=== PATIENT | female | born 1930 | race African-American/Black ===

== ENCOUNTER 2017-04-23 11:48 | Emergency (ER) | payer MEDICARE, BC ==
[~2017-04-23] VITALS: Ht 162.6 cm; Wt 103.0 kg
[~2017-04-23 11:48] MED LIST: ACET-2708 PO; AMLO5TAB4 PO; ATOR20TA PO; Atenolol PO; CHOL500010 PO; CLOP75TA15 PO; Docusate Sodium PO; FERR325T23 PO; Fluticasone Propionate BOTHNSTRLS; HYDR200T35 PO; LOSA100T3 PO; Levothyroxine Sodium PO; MY50 PO; OLAN10TA3 PO; PRIM50TA31 PO; TERA5CAP4 PO; VENL75CA55 PO
[2017-04-23] MEDS ORDERED: CLONIDINE 0.1MG TABLET PO ONE (12:15)
[2017-04-23 12:29] LABS: BASOPHILS % 0.5 % (0.0-2.0); EOSINOPHILS % 0.1 % (0.0-5.0); HEMATOCRIT. 28.3 % (36.0-48.0); HEMOGLOBIN. 9.5 g/dL (12.0-16.0); LYMPHOCYTES % 16.7 % (20.0-50.0); MEAN CORPUSCULAR HEMOGLOBIN 26.4 pg (28.0-32.0); MEAN CORPUSCULAR VOLUME 78.9 fL (81.0-99.0); MEAN PLATELET VOLUME 6.8 fl (7.4-10.4); MONOCYTES % 4.5 % (2.0-8.0); NEUTROPHILS % 78.2 % (40.0-76.0); PLATELET 225 x1000/uL (130-400); RED BLOOD CELL COUNT 3.59 mill/uL (4.2-5.4); RED CELL DISTRIBUTION WIDTH 15.3 % (11.6-14.6)
[2017-04-23 12:37] LABS: PROTHROMBIN TIME 10.7 sec (9.4-11.6)
[2017-04-23 12:47] LABS: CARBON DIOXIDE 29 mEq/L (21-32); CHLORIDE 99 mEq/L (98-107); CREATINE KINASE 89 IU/L (26-192); TROPONIN I < 0.02 ng/mL (0.00-0.04)
[2017-04-23 13:47] LABS: CLARITY URINE CLEAR (CLEAR); COLOR URINE YELLOW (YELLOW); GLUCOSE URINE TRACE (NEGATIVE); KETONES URINE NEGATIVE (NEGATIVE); LEUKOCYTE ESTERASE URINE NEGATIVE (NEGATIVE); NITRITE URINE NEGATIVE (NEGATIVE); OCCULT BLOOD URINE NEGATIVE (NEGATIVE); PH URINE 6.5 (4.5-8.0); PROTEIN URINE 2+ (NEGATIVE); SPECIFIC GRAVITY URINE 1.014 (1.005-1.030); UROBILINOGEN URINE 0.2 E.U./dL (0.2-1.0)
[2017-04-23 16:20] VITALS: BP 161/85
== END 2017-04-23 16:57 | disposition home or self-care (01) ==
LOC: EDBEDREQ 12:09 → ER 12:21 → CANBEDREQ 04-24 01:39
DX: I10 Essential (primary) hypertension (principal); E78.00 Pure hypercholesterolemia, unspecified; Z88.2 Allergy status to sulfonamides; Z88.5 Allergy status to narcotic agent; Z88.8 Allergy status to other drugs, medicaments and biological substances
CPT/HCPCS: 36415; 70450; 71010; 80053; 81001; 82550; 84443; 84484; 85025; 85610; 93005; 99285

== ENCOUNTER 2019-06-27 13:45 | Inpatient (IN) | payer MEDICARE, BC ==
[~2019-06-27] VITALS: Ht 157.5 cm; Wt 76.2 kg
[2019-06-27] MEDS ORDERED: ONDANSETRON HCL 4MG/2ML INJ IV STA (15:18)
[2019-06-27] MEDS ORDERED: SODIUM CHLORIDE 0.9% 1,000 ML IV ONE (15:18)
[2019-06-27 16:48] LABS: CHLORIDE 102 mEq/L (98-107); PROTHROMBIN TIME 10.5 sec (9.6-11.0)
[2019-06-27 16:49] LABS: BASOPHILS % 0.4 % (0.0-2.0); EOSINOPHILS % 0.2 % (0.0-5.0); LYMPHOCYTES % 20.7 % (20.0-50.0); MEAN CORPUSCULAR HEMOGLOBIN 21.2 pg (28.0-32.0); MEAN CORPUSCULAR VOLUME 65.8 fL (81.0-99.0); MONOCYTES % 7.1 % (2.0-8.0); NEUTROPHILS % 71.6 % (40.0-76.0); PLATELET 224 x1000/uL (130-400); RED BLOOD CELL COUNT 3.13 mill/uL (4.2-5.4); RED CELL DISTRIBUTION WIDTH 18.3 % (11.6-14.6)
[2019-06-27 16:55] LABS: HEMATOCRIT. 20.6 % (36.0-48.0); HEMOGLOBIN. 6.6 g/dL (12.0-16.0)
[2019-06-27 17:10] LABS: PLATELET ESTIMATE NORMAL
[2019-06-27 17:21] LABS: CLARITY URINE CLEAR (CLEAR); COLOR URINE YELLOW (YELLOW); KETONES URINE NEGATIVE (NEGATIVE); LEUKOCYTE ESTERASE URINE TRACE (NEGATIVE); NITRITE URINE NEGATIVE (NEGATIVE); OCCULT BLOOD URINE NEGATIVE (NEGATIVE); PH URINE 5.5 (4.5-8.0); PROTEIN URINE 1+ (NEGATIVE); SPECIFIC GRAVITY URINE 1.008 (1.005-1.030); UROBILINOGEN URINE 0.2 E.U./dL (0.2-1.0)
[2019-06-28 10:00] VITALS: BP 168/87
[2019-06-28 10:30] VITALS: BP 168/87
[2019-06-28] MEDS ORDERED: NON FORMULARY PATIENT HOME MED PO SCH ×2 (10:30→11:00)
[2019-06-28 12:00] VITALS: BP_SYST 165; BP_DIAS 76; BP_DIAS 78
[2019-06-28] MEDS: PANTOPRAZOLE 40MG DR TABLET PO SCH (12:08)
[2019-06-28] MEDS: HYDROXYCHLOROQUINE SULFATE 200MG TABLET PO SCH (12:09)
[2019-06-28] MEDS: ATENOLOL 25MG TABLET PO SCH ×2 (12:09→21:16)
[2019-06-28] MEDS: AMLODIPINE 5MG TABLET PO SCH ×2 (12:09→21:16)
[2019-06-28] MEDS ORDERED: VENLAFAXINE HCL 50MG TABLET PO SCH (13:00)
[2019-06-28] MEDS: FUROSEMIDE 20MG TABLET PO SCH ×2 (13:30→21:15)
[2019-06-28] MEDS: LINAGLIPTIN 5MG TABLET PO SCH (13:30)
[2019-06-28] MEDS: OLANZAPINE 10MG TABLET PO SCH (13:30)
[2019-06-28 13:39] LABS: BASOPHILS % 0.8 % (0.0-2.0); EOSINOPHILS % 0.1 % (0.0-5.0); HEMATOCRIT. 25.6 % (36.0-48.0); HEMOGLOBIN. 8.2 g/dL (12.0-16.0); LYMPHOCYTES % 20.4 % (20.0-50.0); MEAN CORPUSCULAR HEMOGLOBIN 22.8 pg (28.0-32.0); MEAN CORPUSCULAR VOLUME 70.9 fL (81.0-99.0); MEAN PLATELET VOLUME 7.3 fl (7.4-10.4); MONOCYTES % 8.2 % (2.0-8.0); NEUTROPHILS % 70.5 % (40.0-76.0); PLATELET 220 x1000/uL (130-400); RED BLOOD CELL COUNT 3.61 mill/uL (4.2-5.4); RED CELL DISTRIBUTION WIDTH 20.8 % (11.6-14.6)
[2019-06-28] MEDS: VENLAFAXINE HCL 37.5MG SR CAPSULE 24HR PO SCH (15:45)
[2019-06-28] MEDS: PRIMIDONE 50MG TABLET PO SCH ×2 (15:45→21:17)
[2019-06-28 16:00] VITALS: BP 161/68
[2019-06-28] MEDS ORDERED: ATEN-42 PO (17:32)
[2019-06-28] MEDS ORDERED: LEVO25TA7 PO (17:32)
[2019-06-28] MEDS ORDERED: DOCU-138 PO (17:32)
[2019-06-28 20:00] VITALS: BP 134/77
[2019-06-28] MEDS: ATORVASTATIN CALCIUM 20MG TABLET PO SCH (21:15)
[2019-06-29] VITALS: BP 138/69
[2019-06-29 04:00] VITALS: BP 178/82
[2019-06-29] MEDS: PANTOPRAZOLE 40MG DR TABLET PO SCH (06:13)
[2019-06-29] MEDS: AMLODIPINE 5MG TABLET PO SCH ×2 (06:42→21:11)
[2019-06-29 08:00] VITALS: BP 172/74
[2019-06-29] MEDS: FUROSEMIDE 20MG TABLET PO SCH ×2 (09:07→21:10)
[2019-06-29] MEDS: PRIMIDONE 50MG TABLET PO SCH ×2 (09:07→21:10)
[2019-06-29] MEDS: LINAGLIPTIN 5MG TABLET PO SCH (09:07)
[2019-06-29] MEDS: VENLAFAXINE HCL 37.5MG SR CAPSULE 24HR PO SCH (09:08)
[2019-06-29] MEDS: ATENOLOL 25MG TABLET PO SCH ×2 (09:08→21:13)
[2019-06-29] MEDS: OLANZAPINE 10MG TABLET PO SCH (09:08)
[2019-06-29] MEDS: HYDROXYCHLOROQUINE SULFATE 200MG TABLET PO SCH (09:08)
[2019-06-29 11:08] LABS: CHLORIDE 103 mEq/L (98-107)
[2019-06-29 12:00] VITALS: BP 155/66
[2019-06-29 12:52] LABS: TOTAL IRON BINDING CAPACITY 314 ug/dL (250-450)
[2019-06-29 14:23] LABS: BASOPHILS % 0.5 % (0.0-2.0); EOSINOPHILS % 0.1 % (0.0-5.0); HEMOGLOBIN. 8.6 g/dL (12.0-16.0); MEAN CORPUSCULAR HEMOGLOBIN 22.7 pg (28.0-32.0); MEAN CORPUSCULAR VOLUME 71.5 fL (81.0-99.0); MEAN PLATELET VOLUME 7.8 fl (7.4-10.4); MONOCYTES % 7.3 % (2.0-8.0); NEUTROPHILS % 75.1 % (40.0-76.0); PLATELET 223 x1000/uL (130-400); RED BLOOD CELL COUNT 3.78 mill/uL (4.2-5.4); RED CELL DISTRIBUTION WIDTH 20.8 % (11.6-14.6)
[2019-06-29 16:00] VITALS: BP 151/67
[2019-06-29] MEDS ORDERED: FAMO40TA7 MT (16:08)
[2019-06-29] MEDS ORDERED: POTASSIUM CHLORIDE 20MEQ TABLET SR PO SCH (17:00)
[2019-06-29 20:00] VITALS: BP 177/71
[2019-06-29] MEDS: ATORVASTATIN CALCIUM 20MG TABLET PO SCH (21:10)
[2019-06-29] MEDS: POTASSIUM CHLORIDE 20MEQ TABLET SR PO SCH (23:15)
[2019-06-30] VITALS: BP_SYST 164; BP_SYST 179; BP_SYST 188; BP_DIAS 77; BP_DIAS 80; BP_DIAS 87
[2019-06-30] MEDS ORDERED: AMLODIPINE 5MG TABLET PO PRN (00:45)
[2019-06-30 04:00] VITALS: BP 167/71
[2019-06-30 06:58] LABS: BASOPHILS % 0.7 % (0.0-2.0); EOSINOPHILS % 0.1 % (0.0-5.0); HEMATOCRIT. 26.3 % (36.0-48.0); HEMOGLOBIN. 8.3 g/dL (12.0-16.0); LYMPHOCYTES % 24.4 % (20.0-50.0); MEAN CORPUSCULAR HEMOGLOBIN 22.3 pg (28.0-32.0); MEAN CORPUSCULAR VOLUME 70.7 fL (81.0-99.0); MONOCYTES % 6.7 % (2.0-8.0); NEUTROPHILS % 68.1 % (40.0-76.0); PLATELET 225 x1000/uL (130-400); RED BLOOD CELL COUNT 3.72 mill/uL (4.2-5.4); RED CELL DISTRIBUTION WIDTH 20.9 % (11.6-14.6)
[2019-06-30 08:00] VITALS: BP 179/78
[2019-06-30] MEDS: OLANZAPINE 10MG TABLET PO SCH (09:00)
[2019-06-30] MEDS: HYDROXYCHLOROQUINE SULFATE 200MG TABLET PO SCH (09:00)
[2019-06-30] MEDS: VENLAFAXINE HCL 37.5MG SR CAPSULE 24HR PO SCH (09:00)
[2019-06-30] MEDS: PRIMIDONE 50MG TABLET PO SCH ×2 (09:00→21:33)
[2019-06-30] MEDS: FUROSEMIDE 20MG TABLET PO SCH ×2 (09:23→21:33)
[2019-06-30] MEDS: ATENOLOL 25MG TABLET PO SCH (09:23)
[2019-06-30] MEDS: LINAGLIPTIN 5MG TABLET PO SCH (09:23)
[2019-06-30] MEDS: PANTOPRAZOLE SODIUM 40 MG/VIAL IV SCH (09:23)
[2019-06-30] MEDS: AMLODIPINE 5MG TABLET PO SCH ×2 (09:23→21:33)
[2019-06-30] MEDS: POTASSIUM CHLORIDE 20MEQ TABLET SR PO SCH ×2 (11:00→23:24)
[2019-06-30] MEDS ORDERED: FENTANYL CITRATE/PF 50MCG/ML 2ML VIAL ONE (12:41)
[2019-06-30] MEDS ORDERED: SIMETHICONE 40 MG/0.6 ML 30ML ONE (12:41)
[2019-06-30] MEDS ORDERED: MIDAZOLAM HCL 5 MG/5 ML VIAL ONE (12:41)
[2019-06-30] MEDS ORDERED: FENTANYL CITRATE/PF 50MCG/ML 2ML VIAL IV PRN (12:50)
[2019-06-30] MEDS ORDERED: MIDAZOLAM HCL 5 MG/5 ML VIAL IV PRN (12:51)
[2019-06-30 14:30] VITALS: BP 160/75
[2019-06-30 16:00] VITALS: BP 178/75
[2019-06-30] MEDS: FERROUS SULFATE 325MG TABLET PO SCH (16:42)
[2019-06-30] MEDS ORDERED: ACETAMINOPHEN 325MG TABLET PO PRN (17:15)
[2019-06-30] MEDS ORDERED: ACETAMINOPHEN 650MG/20.3ML UDC PO PRN (17:15)
[2019-06-30 20:00] VITALS: BP 167/79
[2019-06-30] MEDS: ATORVASTATIN CALCIUM 20MG TABLET PO SCH (21:33)
[2019-06-30] MEDS: ATENOLOL 50 MG TABLET PO SCH (21:33)
[2019-07-01] VITALS: BP_SYST 160; BP_SYST 161; BP_SYST 187; BP_DIAS 72; BP_DIAS 80; BP_DIAS 82
[2019-07-01 04:00] VITALS: BP 168/80
[2019-07-01] MEDS: FUROSEMIDE 20MG TABLET PO SCH ×2 (09:13→20:59)
[2019-07-01] MEDS: METFORMIN HCL 500MG TABLET PO SCH ×2 (09:13→17:16)
[2019-07-01] MEDS: PANTOPRAZOLE SODIUM 40 MG/VIAL IV SCH (09:13)
[2019-07-01] MEDS: HYDROXYCHLOROQUINE SULFATE 200MG TABLET PO SCH (09:14)
[2019-07-01] MEDS: LINAGLIPTIN 5MG TABLET PO SCH (09:14)
[2019-07-01] MEDS: OLANZAPINE 10MG TABLET PO SCH (09:14)
[2019-07-01] MEDS: FERROUS SULFATE 325MG TABLET PO SCH ×2 (09:15→17:16)
[2019-07-01] MEDS: ATENOLOL 25MG TABLET PO SCH (09:15)
[2019-07-01] MEDS: AMLODIPINE 5MG TABLET PO SCH ×2 (09:15→20:59)
[2019-07-01] MEDS: PRIMIDONE 50MG TABLET PO SCH ×2 (09:15→20:59)
[2019-07-01] MEDS: VENLAFAXINE HCL 37.5MG SR CAPSULE 24HR PO SCH (09:20)
[2019-07-01 10:32] LABS: BASOPHILS % 0.8 % (0.0-2.0); EOSINOPHILS % 0.1 % (0.0-5.0); HEMATOCRIT. 29.4 % (36.0-48.0); HEMOGLOBIN. 9.2 g/dL (12.0-16.0); LYMPHOCYTES % 17.8 % (20.0-50.0); MEAN CORPUSCULAR HEMOGLOBIN 22.3 pg (28.0-32.0); MEAN CORPUSCULAR VOLUME 71.6 fL (81.0-99.0); MEAN PLATELET VOLUME 6.9 fl (7.4-10.4); MONOCYTES % 8.2 % (2.0-8.0); NEUTROPHILS % 73.1 % (40.0-76.0); PLATELET 242 x1000/uL (130-400); RED BLOOD CELL COUNT 4.11 mill/uL (4.2-5.4); RED CELL DISTRIBUTION WIDTH 22.2 % (11.6-14.6)
[2019-07-01] MEDS ORDERED: DEXTROSE 50% WATER 50ML SYRINGE IV PRN (11:45)
[2019-07-01] MEDS: POTASSIUM CHLORIDE 20MEQ TABLET SR PO SCH ×2 (12:00→23:44)
[2019-07-01] MEDS: BLOOD SUGAR DIAGNOSTIC STRIP TEST SCH ×3 (12:06→21:55)
[2019-07-01 16:32] LABS: PLATELET ESTIMATE NORMAL
[2019-07-01] MEDS: INSULIN LISPRO 100 UNITS/ML SUBCUT SCH ×2 (17:33→21:00)
[2019-07-01] MEDS: LOSARTAN POTASSIUM 100 MG TABLET PO SCH (18:58)
[2019-07-01 20:00] VITALS: BP_SYST 152; BP_SYST 165; BP_SYST 176; BP_DIAS 68; BP_DIAS 75; BP_DIAS 82
[2019-07-01] MEDS: ATENOLOL 50 MG TABLET PO SCH (20:59)
[2019-07-01] MEDS: ATORVASTATIN CALCIUM 20MG TABLET PO SCH (20:59)
[2019-07-02] VITALS: BP 187/81
[2019-07-02 01:16] VITALS: BP 155/66
[2019-07-02 04:00] VITALS: BP 186/88
[2019-07-02] MEDS: LOSARTAN POTASSIUM 100 MG TABLET PO SCH (06:20)
[2019-07-02] MEDS: FERROUS SULFATE 325MG TABLET PO SCH (06:20)
[2019-07-02] MEDS: AMLODIPINE 5MG TABLET PO SCH (06:21)
[2019-07-02] MEDS: METFORMIN HCL 500MG TABLET PO SCH (06:21)
[2019-07-02] MEDS: BLOOD SUGAR DIAGNOSTIC STRIP TEST SCH ×2 (07:13→11:44)
[2019-07-02] MEDS: INSULIN LISPRO 100 UNITS/ML SUBCUT SCH ×2 (07:14→11:53)
[2019-07-02 08:00] VITALS: BP 170/74
[2019-07-02] MEDS: ATENOLOL 25MG TABLET PO SCH (09:15)
[2019-07-02] MEDS: FUROSEMIDE 20MG TABLET PO SCH (09:15)
[2019-07-02] MEDS: PRIMIDONE 50MG TABLET PO SCH (09:15)
[2019-07-02] MEDS: OLANZAPINE 10MG TABLET PO SCH (09:15)
[2019-07-02] MEDS: VENLAFAXINE HCL 37.5MG SR CAPSULE 24HR PO SCH (09:15)
[2019-07-02] MEDS: PANTOPRAZOLE SODIUM 40 MG/VIAL IV SCH (09:17)
[2019-07-02] MEDS: HYDROXYCHLOROQUINE SULFATE 200MG TABLET PO SCH (09:18)
[2019-07-02] MEDS: LINAGLIPTIN 5MG TABLET PO SCH (09:43)
[2019-07-02] MEDS ORDERED: ATEN-42 PO (10:31)
[2019-07-02] MEDS ORDERED: ATEN50TA PO (10:31)
[2019-07-02] MEDS: POTASSIUM CHLORIDE 20MEQ TABLET SR PO SCH (11:39)
[2019-07-02 12:00] VITALS: BP 183/79
== END 2019-07-02 13:30 | disposition home or self-care (01) | DRG 280 ==
LOC: ER 13:45 → 5WST 17:59 → EDBEDREQ 18:10 → ENRESERV 06-28 08:04
PROVIDERS: ADMIT Specialist; ATTEND Specialist
PROC: 30233N1 Transfusion of Nonautologous Red Blood Cells into Peripheral Vein, Percutaneous Approach (ICD-10-PCS; principal; 2019-06-27)
PROC: 0DB48ZX Excision of Esophagogastric Junction, Via Natural or Artificial Opening Endoscopic, Diagnostic (ICD-10-PCS; 2019-06-30)
DX: I21.4 Non-ST elevation (NSTEMI) myocardial infarction (principal); E43 Unspecified severe protein-calorie malnutrition; N17.0 Acute kidney failure with tubular necrosis; E87.1 Hypo-osmolality and hyponatremia; D50.0 Iron deficiency anemia secondary to blood loss (chronic); E03.9 Hypothyroidism, unspecified; E87.6 Hypokalemia; I25.10 Atherosclerotic heart disease of native coronary artery without angina pectoris; K22.70 Barrett's esophagus without dysplasia; I11.9 Hypertensive heart disease without heart failure; F31.9 Bipolar disorder, unspecified; K21.9 Gastro-esophageal reflux disease without esophagitis; E78.00 Pure hypercholesterolemia, unspecified; K31.7 Polyp of stomach and duodenum; K44.9 Diaphragmatic hernia without obstruction or gangrene; E11.9 Type 2 diabetes mellitus without complications; Z96.641 Presence of right artificial hip joint; Z88.5 Allergy status to narcotic agent; Z88.6 Allergy status to analgesic agent; Z88.2 Allergy status to sulfonamides; Z90.49 Acquired absence of other specified parts of digestive tract; Z95.2 Presence of prosthetic heart valve; Z79.899 Other long term (current) drug therapy; Z68.30 Body mass index [BMI] 30.0-30.9, adult
CPT/HCPCS: 36415; 71045; 74176; 80048; 80053; 81003; 82270; 82728; 82962; 83540; 83550; 83605; 83880; 84484; 85025; 86850; 86900; 86920; 88305; 88312; 88313; 93005; 97162; 97535; 99291; C9113; J1815; J2250; J2405; J3010; J7030; P9016

== ENCOUNTER 2019-08-31 17:07 | Inpatient (IN) | payer MEDICARE, BC ==
[~2019-08-31] VITALS: Ht 158.8 cm; Wt 74.4 kg
[~2019-08-31 17:07] MED LIST changes: +ATEN-42 PO; +ATEN50TA PO; -Atenolol PO; +DOCU-138 PO; -Docusate Sodium PO; +FAMO40TA7 MT; -Fluticasone Propionate BOTHNSTRLS; +LEVO25TA7 PO; -LOSA100T3 PO; -Levothyroxine Sodium PO
[2019-08-31] MEDS ORDERED: SODIUM CHLORIDE 0.9% 1,000 ML IV ONE (17:39)
[2019-08-31 18:10] LABS: PROTHROMBIN TIME 10.4 sec (9.6-11.0)
[2019-08-31 18:11] LABS: BASOPHILS % 0.7 % (0.0-2.0); EOSINOPHILS % 0.2 % (0.0-5.0); HEMATOCRIT. 32.4 % (36.0-48.0); HEMOGLOBIN. 10.1 g/dL (12.0-16.0); LYMPHOCYTES % 25.7 % (20.0-50.0); MEAN CORPUSCULAR HEMOGLOBIN 23.3 pg (28.0-32.0); MEAN CORPUSCULAR VOLUME 74.2 fL (81.0-99.0); MEAN PLATELET VOLUME 8.3 fl (7.4-10.4); MONOCYTES % 6.9 % (2.0-8.0); NEUTROPHILS % 66.5 % (40.0-76.0); PLATELET 238 x1000/uL (130-400); RED BLOOD CELL COUNT 4.36 mill/uL (4.2-5.4); RED CELL DISTRIBUTION WIDTH 21.5 % (11.6-14.6)
[2019-08-31 18:12] LABS: CHLORIDE 95 mEq/L (98-107)
[2019-08-31 18:27] LABS: BETA HYDROXYBUTYRATE 0.1 mMol/L (0.0-0.3)
[2019-08-31] MEDS ORDERED: POTASSIUM CHLORIDE 20MEQ TABLET SR PO ONE (19:00)
[2019-08-31] MEDS ORDERED: INSULIN LISPRO 100 UNITS/ML SUBCUT ONE (19:00)
[2019-08-31] MEDS ORDERED: SODIUM CHLORIDE 0.9% 500 ML IV ONE (19:00)
[2019-08-31 19:11] LABS: CLARITY URINE CLEAR (CLEAR); COLOR URINE YELLOW (YELLOW); KETONES URINE NEGATIVE (NEGATIVE); LEUKOCYTE ESTERASE URINE NEGATIVE (NEGATIVE); NITRITE URINE NEGATIVE (NEGATIVE); OCCULT BLOOD URINE NEGATIVE (NEGATIVE); PROTEIN URINE 2+ (NEGATIVE); SPECIFIC GRAVITY URINE 1.009 (1.005-1.030); UROBILINOGEN URINE 0.2 E.U./dL (0.2-1.0)
[2019-08-31] MEDS ORDERED: LORAZEPAM 0.5MG TABLET PO PRN (21:30)
[2019-08-31] MEDS ORDERED: MAGNESIUM/ALUMINUM HYDROXIDE/SIMETHICONE 30ML UDC PO PRN (21:30)
[2019-08-31] MEDS ORDERED: ONDANSETRON HCL 4MG/2ML INJ IV PRN (21:30)
[2019-08-31] MEDS ORDERED: DOCUSATE SODIUM 100MG CAPSULE PO PRN (21:30)
[2019-08-31] MEDS: SODIUM CHLORIDE 0.9% 1,000 ML IV SCH (21:30)
[2019-08-31] MEDS ORDERED: ACETAMINOPHEN 650MG/20.3ML UDC GT PRN (21:30)
[2019-08-31] MEDS ORDERED: CLONIDINE 0.1MG TABLET PO ONE (23:30)
[2019-09-01] MEDS: LOSARTAN POTASSIUM 100 MG TABLET PO SCH ×2 (02:53→18:28)
[2019-09-01 04:50] LABS: BASOPHILS % 0.6 % (0.0-2.0); EOSINOPHILS % 0.3 % (0.0-5.0); HEMATOCRIT. 30.4 % (36.0-48.0); HEMOGLOBIN. 9.8 g/dL (12.0-16.0); LYMPHOCYTES % 22.3 % (20.0-50.0); MEAN CORPUSCULAR HEMOGLOBIN 23.7 pg (28.0-32.0); MEAN CORPUSCULAR VOLUME 73.1 fL (81.0-99.0); MEAN PLATELET VOLUME 8.3 fl (7.4-10.4); MONOCYTES % 5.4 % (2.0-8.0); NEUTROPHILS % 71.4 % (40.0-76.0); PLATELET 250 x1000/uL (130-400); RED BLOOD CELL COUNT 4.15 mill/uL (4.2-5.4); RED CELL DISTRIBUTION WIDTH 22.2 % (11.6-14.6)
[2019-09-01] MEDS ORDERED: LEVOTHYROXINE SODIUM 25MCG TABLET PO SCH (09:00)
[2019-09-01] MEDS ORDERED: VENLAFAXINE HCL 75MG TABLET PO SCH (09:00)
[2019-09-01 10:08] LABS: PLATELET ESTIMATE NORMAL
[2019-09-01 11:17] VITALS: BP 168/98
[2019-09-01 11:23] VITALS: BP 168/68
[2019-09-01 17:00] VITALS: BP 207/76
[2019-09-01] MEDS: SODIUM CHLORIDE 0.9% 1,000 ML IV SCH ×2 (17:30→19:11)
[2019-09-01] MEDS ORDERED: DEXTROSE 50% WATER 50ML SYRINGE IV PRN ×2 (18:00)
[2019-09-01] MEDS: POTASSIUM CHLORIDE 20MEQ TABLET SR PO SCH (18:29)
[2019-09-01] MEDS: ATENOLOL 25MG TABLET PO SCH ×2 (18:29→21:07)
[2019-09-01] MEDS: PRIMIDONE 50MG TABLET PO SCH ×2 (18:30→21:07)
[2019-09-01] MEDS: AMLODIPINE 10MG TABLET PO SCH (18:30)
[2019-09-01] MEDS: OLANZAPINE 10MG TABLET PO SCH (18:30)
[2019-09-01] MEDS: GLIMEPIRIDE 1MG TABLET PO SCH (18:30)
[2019-09-01] MEDS: VENLAFAXINE HCL 37.5MG SR CAPSULE 24HR PO SCH (19:09)
[2019-09-01 20:00] VITALS: BP 180/84
[2019-09-01] MEDS ORDERED: INSULIN LISPRO 100 UNITS/ML SUBCUT SCH (21:00)
[2019-09-01] MEDS ORDERED: BLOOD SUGAR DIAGNOSTIC STRIP TEST SCH (21:00)
[2019-09-01] MEDS: FAMOTIDINE 20MG TABLET PO SCH (21:07)
[2019-09-01] MEDS: INSULIN LISPRO 100 UNITS/ML SUBCUT SCH (21:09)
[2019-09-01] MEDS: INSULIN GLARGINE UD 100 UNITS/ML SYR SUBCUT SCH (21:10)
[2019-09-01] MEDS: BLOOD SUGAR DIAGNOSTIC STRIP TEST SCH (21:10)
[2019-09-01] MEDS ORDERED: INSULIN GLARGINE UD 100 UNITS/ML SYR SUBCUT SCH (22:00)
[2019-09-02] VITALS: BP 145/68
[2019-09-02 04:00] VITALS: BP 158/79
[2019-09-02] MEDS: LEVOTHYROXINE SODIUM 25MCG TABLET PO SCH (06:42)
[2019-09-02] MEDS: BLOOD SUGAR DIAGNOSTIC STRIP TEST SCH ×4 (06:42→21:06)
[2019-09-02] MEDS: INSULIN LISPRO 100 UNITS/ML SUBCUT SCH ×4 (06:42→21:07)
[2019-09-02 08:00] VITALS: BP 184/79
[2019-09-02] MEDS: LOSARTAN POTASSIUM 100 MG TABLET PO SCH (08:40)
[2019-09-02] MEDS: GLIMEPIRIDE 1MG TABLET PO SCH ×2 (08:40→17:44)
[2019-09-02] MEDS: VENLAFAXINE HCL 37.5MG SR CAPSULE 24HR PO SCH (08:40)
[2019-09-02] MEDS: POTASSIUM CHLORIDE 20MEQ TABLET SR PO SCH (08:41)
[2019-09-02] MEDS: OLANZAPINE 10MG TABLET PO SCH (08:41)
[2019-09-02] MEDS: LINAGLIPTIN 5MG TABLET PO SCH (08:41)
[2019-09-02] MEDS: ATENOLOL 25MG TABLET PO SCH ×2 (08:41→20:58)
[2019-09-02] MEDS: PRIMIDONE 50MG TABLET PO SCH ×2 (08:41→20:57)
[2019-09-02] MEDS: AMLODIPINE 10MG TABLET PO SCH (08:42)
[2019-09-02 12:00] VITALS: BP 137/75
[2019-09-02] MEDS: SODIUM CHLORIDE 0.9% 1,000 ML IV SCH (12:53)
[2019-09-02 16:00] VITALS: BP 166/71
[2019-09-02 16:09] LABS: T4 FREE 1.32 ng/dL (0.76-1.46)
[2019-09-02] MEDS ORDERED: POTASSIUM CHLORIDE 20MEQ/PACKET PO NR (17:00)
[2019-09-02] MEDS: METFORMIN HCL 500MG TABLET PO SCH (17:44)
[2019-09-02 20:00] VITALS: BP 159/67
[2019-09-02] MEDS: FAMOTIDINE 20MG TABLET PO SCH (20:57)
[2019-09-02] MEDS: INSULIN GLARGINE UD 100 UNITS/ML SYR SUBCUT SCH (22:30)
[2019-09-03] VITALS: BP 119/68
[2019-09-03 04:00] VITALS: BP 122/56
[2019-09-03] MEDS: LEVOTHYROXINE SODIUM 25MCG TABLET PO SCH (05:47)
[2019-09-03] MEDS: METFORMIN HCL 500MG TABLET PO SCH ×2 (05:48→19:01)
[2019-09-03] MEDS: GLIMEPIRIDE 1MG TABLET PO SCH ×2 (05:48→19:01)
[2019-09-03] MEDS: BLOOD SUGAR DIAGNOSTIC STRIP TEST SCH ×4 (05:48→20:37)
[2019-09-03] MEDS: INSULIN LISPRO 100 UNITS/ML SUBCUT SCH ×4 (05:48→20:49)
[2019-09-03 06:33] LABS: BASOPHILS % 0.5 % (0.0-2.0); EOSINOPHILS % 0.1 % (0.0-5.0); HEMATOCRIT. 31.3 % (36.0-48.0); HEMOGLOBIN. 10.2 g/dL (12.0-16.0); LYMPHOCYTES % 27.6 % (20.0-50.0); MEAN CORPUSCULAR VOLUME 73.7 fL (81.0-99.0); MEAN PLATELET VOLUME 8.3 fl (7.4-10.4); MONOCYTES % 6.4 % (2.0-8.0); NEUTROPHILS % 65.4 % (40.0-76.0); PLATELET 247 x1000/uL (130-400); RED BLOOD CELL COUNT 4.24 mill/uL (4.2-5.4); RED CELL DISTRIBUTION WIDTH 22.6 % (11.6-14.6)
[2019-09-03 08:00] VITALS: BP 138/78
[2019-09-03] MEDS: LOSARTAN POTASSIUM 100 MG TABLET PO SCH (09:42)
[2019-09-03] MEDS: POTASSIUM CHLORIDE 20MEQ TABLET SR PO SCH (09:42)
[2019-09-03] MEDS: VENLAFAXINE HCL 37.5MG SR CAPSULE 24HR PO SCH (09:43)
[2019-09-03] MEDS: ATENOLOL 25MG TABLET PO SCH ×2 (09:43→20:48)
[2019-09-03] MEDS: LINAGLIPTIN 5MG TABLET PO SCH (09:44)
[2019-09-03] MEDS: AMLODIPINE 10MG TABLET PO SCH (09:44)
[2019-09-03] MEDS: PRIMIDONE 50MG TABLET PO SCH ×2 (09:44→20:47)
[2019-09-03 12:00] VITALS: BP 132/72
[2019-09-03] MEDS: OLANZAPINE 10MG TABLET PO SCH (12:31)
[2019-09-03] MEDS: MAGNESIUM OXIDE 400MG TABLET PO SCH (12:31)
[2019-09-03 16:00] VITALS: BP 148/64
[2019-09-03 20:00] VITALS: BP 191/86
[2019-09-03] MEDS: FAMOTIDINE 20MG TABLET PO SCH (20:48)
[2019-09-03] MEDS: CLONIDINE 0.1MG TABLET PO PRN (20:51)
[2019-09-03] MEDS: INSULIN GLARGINE UD 100 UNITS/ML SYR SUBCUT SCH (21:35)
[2019-09-04] VITALS: BP 165/65
[2019-09-04 04:00] VITALS: BP 188/81
[2019-09-04] MEDS: CLONIDINE 0.1MG TABLET PO PRN (06:22)
[2019-09-04] MEDS: BLOOD SUGAR DIAGNOSTIC STRIP TEST SCH ×4 (06:23→20:38)
[2019-09-04] MEDS: INSULIN LISPRO 100 UNITS/ML SUBCUT SCH ×4 (06:35→21:08)
[2019-09-04] MEDS: METFORMIN HCL 500MG TABLET PO SCH ×2 (07:05→08:52)
[2019-09-04] MEDS: GLIMEPIRIDE 1MG TABLET PO SCH ×2 (07:06→08:52)
[2019-09-04 08:00] VITALS: BP 158/78
[2019-09-04 08:29] LABS: BASOPHILS % 0.4 % (0.0-2.0); EOSINOPHILS % 0.1 % (0.0-5.0); HEMATOCRIT. 33.5 % (36.0-48.0); HEMOGLOBIN. 10.9 g/dL (12.0-16.0); LYMPHOCYTES % 26.5 % (20.0-50.0); MEAN CORPUSCULAR VOLUME 74.1 fL (81.0-99.0); MEAN PLATELET VOLUME 7.3 fl (7.4-10.4); MONOCYTES % 6.9 % (2.0-8.0); NEUTROPHILS % 66.1 % (40.0-76.0); PLATELET 266 x1000/uL (130-400); RED BLOOD CELL COUNT 4.52 mill/uL (4.2-5.4)
[2019-09-04] MEDS: LINAGLIPTIN 5MG TABLET PO SCH (08:51)
[2019-09-04] MEDS: POTASSIUM CHLORIDE 20MEQ TABLET SR PO SCH (10:47)
[2019-09-04] MEDS: OLANZAPINE 10MG TABLET PO SCH (10:47)
[2019-09-04] MEDS: MAGNESIUM OXIDE 400MG TABLET PO SCH (10:47)
[2019-09-04] MEDS: VENLAFAXINE HCL 37.5MG SR CAPSULE 24HR PO SCH (10:48)
[2019-09-04] MEDS: ATENOLOL 25MG TABLET PO SCH (10:48)
[2019-09-04] MEDS: AMLODIPINE 10MG TABLET PO SCH (10:49)
[2019-09-04] MEDS: PRIMIDONE 50MG TABLET PO SCH ×2 (10:49→21:06)
[2019-09-04] MEDS: LOSARTAN POTASSIUM 100 MG TABLET PO SCH (10:49)
[2019-09-04 12:00] VITALS: BP 155/80
[2019-09-04 16:00] VITALS: BP 128/78
[2019-09-04 20:00] VITALS: BP 153/75
[2019-09-04] MEDS: FAMOTIDINE 20MG TABLET PO SCH (21:05)
[2019-09-04] MEDS: ATENOLOL 50 MG TABLET PO SCH (21:06)
[2019-09-04] MEDS: TERAZOSIN HCL 5MG CAPSULE PO SCH (21:07)
[2019-09-04] MEDS: INSULIN GLARGINE UD 100 UNITS/ML SYR SUBCUT SCH (22:00)
[2019-09-05] VITALS: BP 143/60
[2019-09-05 04:00] VITALS: BP 153/66
[2019-09-05] MEDS: BLOOD SUGAR DIAGNOSTIC STRIP TEST SCH ×4 (05:56→20:45)
[2019-09-05] MEDS: INSULIN LISPRO 100 UNITS/ML SUBCUT SCH ×4 (06:09→21:08)
[2019-09-05] MEDS: GLIMEPIRIDE 1MG TABLET PO SCH ×2 (07:15→19:08)
[2019-09-05] MEDS: METFORMIN HCL 500MG TABLET PO SCH ×2 (07:15→19:08)
[2019-09-05 08:00] VITALS: BP 136/64
[2019-09-05] MEDS: OLANZAPINE 10MG TABLET PO SCH (08:42)
[2019-09-05] MEDS: MAGNESIUM OXIDE 400MG TABLET PO SCH (08:43)
[2019-09-05] MEDS: POTASSIUM CHLORIDE 20MEQ TABLET SR PO SCH (08:43)
[2019-09-05] MEDS: VENLAFAXINE HCL 37.5MG SR CAPSULE 24HR PO SCH (08:43)
[2019-09-05] MEDS: PRIMIDONE 50MG TABLET PO SCH ×2 (08:46→20:41)
[2019-09-05] MEDS: LOSARTAN POTASSIUM 100 MG TABLET PO SCH (08:46)
[2019-09-05] MEDS: ATENOLOL 50 MG TABLET PO SCH ×2 (08:46→20:41)
[2019-09-05] MEDS: LINAGLIPTIN 5MG TABLET PO SCH (08:47)
[2019-09-05] MEDS: AMLODIPINE 10MG TABLET PO SCH (08:47)
[2019-09-05 12:00] VITALS: BP 136/61
[2019-09-05 16:00] VITALS: BP 115/67
[2019-09-05 16:28] LABS: BG BASE EXCESS 0.3 mmol/L (-2.0-2.0); BG CARBOXYHEMOGLOBIN 0.3 % (0.5-1.5); BG DEOXYHEMOGLOBIN 4.8 % (0.0-5.0); BG HCO3 ACT 24.1 mmol/L (22.0-26.0); BG METHEMOGLOBIN 0.1 % (0.0-1.5); BG OXYGEN SATURATION 95.2 % (92.0-98.5); BG OXYHEMOGLOBIN 94.8 % (94.0-97.0); BG PCO2 36.1 mmHg (35.0-45.0); BG PH 7.443 (7.350-7.450); BG PO2 76.6 mmHg (75.0-100.0); BG SAMPLE SITE RIGHT BRACHIAL; BG TOTAL HEMOGLOBIN 10.8 g/dL (12.0-18.0); BG VENT MODE ROOM AIR
[2019-09-05 20:00] VITALS: BP 166/77
[2019-09-05] MEDS: FAMOTIDINE 20MG TABLET PO SCH (20:40)
[2019-09-05] MEDS: TERAZOSIN HCL 5MG CAPSULE PO SCH (20:41)
[2019-09-05] MEDS ORDERED: INSULIN GLARGINE UD 100 UNITS/ML SYR SUBCUT SCH (22:00)
[2019-09-06] VITALS: BP 173/78
[2019-09-06] MEDS: CLONIDINE 0.1MG TABLET PO PRN (01:28)
[2019-09-06 04:00] VITALS: BP 146/62
[2019-09-06] MEDS: INSULIN LISPRO 100 UNITS/ML SUBCUT SCH ×4 (05:49→22:22)
[2019-09-06] MEDS: BLOOD SUGAR DIAGNOSTIC STRIP TEST SCH ×4 (05:49→21:00)
[2019-09-06 08:00] VITALS: BP 146/89
[2019-09-06 08:19] LABS: CHLORIDE 109 mEq/L (98-107)
[2019-09-06] MEDS: LINAGLIPTIN 5MG TABLET PO SCH (08:32)
[2019-09-06] MEDS: LOSARTAN POTASSIUM 100 MG TABLET PO SCH (08:32)
[2019-09-06] MEDS: VENLAFAXINE HCL 37.5MG SR CAPSULE 24HR PO SCH (08:33)
[2019-09-06] MEDS: POTASSIUM CHLORIDE 20MEQ TABLET SR PO SCH (08:33)
[2019-09-06] MEDS: GLIMEPIRIDE 1MG TABLET PO SCH ×2 (08:33→18:07)
[2019-09-06] MEDS: PRIMIDONE 50MG TABLET PO SCH (08:33)
[2019-09-06] MEDS: ATENOLOL 50 MG TABLET PO SCH ×2 (08:33→22:21)
[2019-09-06] MEDS: AMLODIPINE 10MG TABLET PO SCH (08:33)
[2019-09-06] MEDS: OLANZAPINE 10MG TABLET PO SCH (08:33)
[2019-09-06] MEDS: MAGNESIUM OXIDE 400MG TABLET PO SCH (08:33)
[2019-09-06] MEDS: METFORMIN HCL 500MG TABLET PO SCH (08:34)
[2019-09-06 09:37] LABS: BASOPHILS % 0.5 % (0.0-2.0); EOSINOPHILS % 0.1 % (0.0-5.0); HEMOGLOBIN. 9.3 g/dL (12.0-16.0); LYMPHOCYTES % 20.7 % (20.0-50.0); MEAN CORPUSCULAR HEMOGLOBIN 23.7 pg (28.0-32.0); MEAN CORPUSCULAR VOLUME 74.5 fL (81.0-99.0); MEAN PLATELET VOLUME 6.8 fl (7.4-10.4); MONOCYTES % 6.2 % (2.0-8.0); NEUTROPHILS % 72.5 % (40.0-76.0); PLATELET 238 x1000/uL (130-400); RED BLOOD CELL COUNT 3.94 mill/uL (4.2-5.4); RED CELL DISTRIBUTION WIDTH 21.7 % (11.6-14.6)
[2019-09-06 09:39] LABS: HEMATOCRIT. 29.3 % (36.0-48.0)
[2019-09-06 12:00] VITALS: BP 150/47
[2019-09-06] MEDS ORDERED: SORBITOL 70% SOLN 30ML PO NR (12:30)
[2019-09-06] MEDS ORDERED: SODIUM POLYSTYRENE SULFONATE 15 G/60 ML BOT PO NR (12:30)
[2019-09-06 16:00] VITALS: BP 94/52
[2019-09-06 20:00] VITALS: BP 152/72
[2019-09-06] MEDS: TERAZOSIN HCL 5MG CAPSULE PO SCH (22:20)
[2019-09-06] MEDS: FAMOTIDINE 20MG TABLET PO SCH (22:20)
[2019-09-07] VITALS: BP 134/65
[2019-09-07 04:00] VITALS: BP 164/80
[2019-09-07] MEDS: BLOOD SUGAR DIAGNOSTIC STRIP TEST SCH ×4 (06:11→20:22)
[2019-09-07] MEDS: CLONIDINE 0.1MG TABLET PO PRN (06:11)
[2019-09-07] MEDS: INSULIN LISPRO 100 UNITS/ML SUBCUT SCH ×4 (07:15→20:30)
[2019-09-07 07:31] LABS: BASOPHILS % 0.4 % (0.0-2.0); EOSINOPHILS % 0.1 % (0.0-5.0); HEMATOCRIT. 30.4 % (36.0-48.0); HEMOGLOBIN. 9.4 g/dL (12.0-16.0); LYMPHOCYTES % 16.2 % (20.0-50.0); MEAN CORPUSCULAR HEMOGLOBIN 23.1 pg (28.0-32.0); MEAN CORPUSCULAR VOLUME 74.8 fL (81.0-99.0); MEAN PLATELET VOLUME 8.5 fl (7.4-10.4); MONOCYTES % 7.5 % (2.0-8.0); NEUTROPHILS % 75.8 % (40.0-76.0); PLATELET 247 x1000/uL (130-400); RED BLOOD CELL COUNT 4.06 mill/uL (4.2-5.4); RED CELL DISTRIBUTION WIDTH 21.3 % (11.6-14.6)
[2019-09-07 08:00] VITALS: BP 153/59
[2019-09-07] MEDS: MAGNESIUM OXIDE 400MG TABLET PO SCH (08:39)
[2019-09-07] MEDS: GLIMEPIRIDE 1MG TABLET PO SCH ×2 (08:39→17:24)
[2019-09-07] MEDS: OLANZAPINE 10MG TABLET PO SCH (08:39)
[2019-09-07] MEDS: AMLODIPINE 10MG TABLET PO SCH (08:39)
[2019-09-07] MEDS: LINAGLIPTIN 5MG TABLET PO SCH (08:39)
[2019-09-07] MEDS: VENLAFAXINE HCL 37.5MG SR CAPSULE 24HR PO SCH (08:40)
[2019-09-07] MEDS: ATENOLOL 50 MG TABLET PO SCH ×2 (08:40→20:27)
[2019-09-07] MEDS: LOSARTAN POTASSIUM 100 MG TABLET PO SCH (08:40)
[2019-09-07] MEDS ORDERED: LORAZEPAM 0.5MG TABLET PO PRN (11:00)
[2019-09-07] MEDS ORDERED: LORAZEPAM 2MG/ML CPJ IV NR (11:00)
[2019-09-07 12:00] VITALS: BP 141/73
[2019-09-07] MEDS: SODIUM CHLORIDE 0.45% 1,000 ML IV SCH (14:12)
[2019-09-07 16:00] VITALS: BP 117/56
[2019-09-07 20:00] VITALS: BP 137/48
[2019-09-07] MEDS: TERAZOSIN HCL 5MG CAPSULE PO SCH (20:26)
[2019-09-07] MEDS: FAMOTIDINE 20MG TABLET PO SCH (20:27)
[2019-09-08] VITALS: BP 148/58
[2019-09-08] MEDS: SODIUM CHLORIDE 0.45% 1,000 ML IV SCH ×2 (02:14→15:48)
[2019-09-08 04:00] VITALS: BP 149/59
[2019-09-08] MEDS: BLOOD SUGAR DIAGNOSTIC STRIP TEST SCH ×3 (06:19→17:15)
[2019-09-08] MEDS: INSULIN LISPRO 100 UNITS/ML SUBCUT SCH ×3 (06:19→17:15)
[2019-09-08 08:00] VITALS: BP 151/67
[2019-09-08 08:24] LABS: BASOPHILS % 0.7 % (0.0-2.0); EOSINOPHILS % 0.1 % (0.0-5.0); HEMATOCRIT. 26.4 % (36.0-48.0); HEMOGLOBIN. 8.3 g/dL (12.0-16.0); LYMPHOCYTES % 28.5 % (20.0-50.0); MEAN CORPUSCULAR HEMOGLOBIN 23.6 pg (28.0-32.0); MEAN CORPUSCULAR VOLUME 74.5 fL (81.0-99.0); MEAN PLATELET VOLUME 8.4 fl (7.4-10.4); MONOCYTES % 6.5 % (2.0-8.0); NEUTROPHILS % 64.2 % (40.0-76.0); PLATELET 206 x1000/uL (130-400); RED BLOOD CELL COUNT 3.54 mill/uL (4.2-5.4); RED CELL DISTRIBUTION WIDTH 21.1 % (11.6-14.6)
[2019-09-08 09:28] LABS: VITAMIN B12 SERUM 425 pg/mL (211-911)
[2019-09-08] MEDS: ATENOLOL 50 MG TABLET PO SCH (10:16)
[2019-09-08] MEDS: LINAGLIPTIN 5MG TABLET PO SCH (10:16)
[2019-09-08] MEDS: MAGNESIUM OXIDE 400MG TABLET PO SCH (10:16)
[2019-09-08] MEDS: GLIMEPIRIDE 1MG TABLET PO SCH ×2 (10:16→17:15)
[2019-09-08] MEDS: VENLAFAXINE HCL 37.5MG SR CAPSULE 24HR PO SCH (10:16)
[2019-09-08] MEDS: AMLODIPINE 10MG TABLET PO SCH (10:17)
[2019-09-08 12:00] VITALS: BP 158/80
[2019-09-08] MEDS: OLANZAPINE 10MG TABLET PO SCH (12:31)
[2019-09-08 16:00] VITALS: BP 133/59
== END 2019-09-08 18:20 | DRG 637 ==
LOC: ER 17:07 → 5WST 19:03 → ENRESERV 09-01 08:56 → 5WST 09-04 16:17
PROVIDERS: ADMIT Specialist; ATTEND Specialist
DX: E11.65 Type 2 diabetes mellitus with hyperglycemia (principal); G93.41 Metabolic encephalopathy; N17.9 Acute kidney failure, unspecified; E46 Unspecified protein-calorie malnutrition; E03.9 Hypothyroidism, unspecified; E78.5 Hyperlipidemia, unspecified; E87.6 Hypokalemia; F31.9 Bipolar disorder, unspecified; Z96.649 Presence of unspecified artificial hip joint; I13.10 Hypertensive heart and chronic kidney disease without heart failure, with stage 1 through stage 4 chronic kidney disease, or unspecified chronic kidney disease; N18.3 Chronic kidney disease, stage 3 (moderate); M32.9 Systemic lupus erythematosus, unspecified; K22.70 Barrett's esophagus without dysplasia; E11.22 Type 2 diabetes mellitus with diabetic chronic kidney disease; D64.9 Anemia, unspecified; E11.69 Type 2 diabetes mellitus with other specified complication; K44.9 Diaphragmatic hernia without obstruction or gangrene; R00.1 Bradycardia, unspecified; E86.0 Dehydration; E87.5 Hyperkalemia; H91.90 Unspecified hearing loss, unspecified ear; I48.0 Paroxysmal atrial fibrillation; I35.0 Nonrheumatic aortic (valve) stenosis; Z79.4 Long term (current) use of insulin; Z90.49 Acquired absence of other specified parts of digestive tract; Z90.710 Acquired absence of both cervix and uterus; Z87.891 Personal history of nicotine dependence; Z95.2 Presence of prosthetic heart valve; Z79.890 Hormone replacement therapy; Z79.899 Other long term (current) drug therapy; Z93.1 Gastrostomy status; Z82.3 Family history of stroke; Z82.49 Family history of ischemic heart disease and other diseases of the circulatory system; Z82.5 Family history of asthma and other chronic lower respiratory diseases; Z86.73 Personal history of transient ischemic attack (TIA), and cerebral infarction without residual deficits; Z95.3 Presence of xenogenic heart valve; Z91.81 History of falling; Z90.89 Acquired absence of other organs; Z68.29 Body mass index [BMI] 29.0-29.9, adult
CPT/HCPCS: 36415; 36600; 70551; 71045; 80048; 80053; 80061; 81003; 82010; 82375; 82533; 82607; 82805; 82962; 83036; 83735; 83880; 84132; 84439; 84443; 84484; 85025; 93005; 93970; 96360; 96372; 97116; 97162; 97166; 97168; 97530; 97535; 99291; J1815; J2060; J2405; J7030

== ENCOUNTER 2019-09-08 18:20 | Inpatient (IN) | payer MEDICARE, BC ==
[~2019-09-08] VITALS: Ht 158.8 cm; Wt 74.4 kg
[2019-09-08 19:24] VITALS: BP 147/60
[2019-09-08] MEDS ORDERED: ACETAMINOPHEN 325MG TABLET PO PRN (19:45)
[2019-09-08] MEDS ORDERED: LORAZEPAM 0.5MG TABLET PO PRN (19:45)
[2019-09-08] MEDS ORDERED: ONDANSETRON HCL 4MG/2ML INJ IV PRN (19:45)
[2019-09-08] MEDS ORDERED: MAGNESIUM/ALUMINUM HYDROXIDE/SIMETHICONE 30ML UDC PO PRN (19:45)
[2019-09-08] MEDS ORDERED: TRAMADOL 50MG TABLET PO PRN (19:45)
[2019-09-08] MEDS ORDERED: DEXTROSE 50% WATER 50ML SYRINGE IV PRN (19:45)
[2019-09-08 20:00] VITALS: BP 160/64
[2019-09-08] MEDS: TERAZOSIN HCL 5MG CAPSULE PO SCH (21:19)
[2019-09-08] MEDS: FAMOTIDINE 20MG TABLET PO SCH (21:19)
[2019-09-08] MEDS: BLOOD SUGAR DIAGNOSTIC STRIP TEST SCH (21:20)
[2019-09-08] MEDS: ATENOLOL 50 MG TABLET PO SCH (21:20)
[2019-09-09] MEDS: BLOOD SUGAR DIAGNOSTIC STRIP TEST SCH ×4 (05:58→22:00)
[2019-09-09] MEDS: GLIMEPIRIDE 1MG TABLET PO SCH ×2 (07:57→16:40)
[2019-09-09 08:00] VITALS: BP 168/67
[2019-09-09] MEDS: ATENOLOL 50 MG TABLET PO SCH ×2 (08:00→22:09)
[2019-09-09] MEDS: MAGNESIUM OXIDE 400MG TABLET PO SCH (08:00)
[2019-09-09] MEDS: LINAGLIPTIN 5MG TABLET PO SCH (08:00)
[2019-09-09] MEDS: AMLODIPINE 10MG TABLET PO SCH (08:01)
[2019-09-09] MEDS: BISACODYL 5MG TABLET PO PRN (08:01)
[2019-09-09 09:00] VITALS: BP 145/68
[2019-09-09] MEDS ORDERED: OLANZAPINE 10MG TABLET PO SCH (09:00)
[2019-09-09] MEDS ORDERED: METFORMIN HCL 500MG TABLET PO SCH (09:00)
[2019-09-09 20:00] VITALS: BP 141/69
[2019-09-09] MEDS: FAMOTIDINE 20MG TABLET PO SCH (22:08)
[2019-09-09] MEDS: DOCUSATE SODIUM 100MG CAPSULE PO PRN (22:08)
[2019-09-09] MEDS: TERAZOSIN HCL 5MG CAPSULE PO SCH (22:09)
[2019-09-10] MEDS: BLOOD SUGAR DIAGNOSTIC STRIP TEST SCH ×4 (06:30→21:58)
[2019-09-10 07:56] VITALS: BP 166/68
[2019-09-10 08:12] LABS: BASOPHILS % 0.4 % (0.0-2.0); EOSINOPHILS % 0.1 % (0.0-5.0); HEMATOCRIT. 26.7 % (36.0-48.0); HEMOGLOBIN. 8.9 g/dL (12.0-16.0); LYMPHOCYTES % 27.7 % (20.0-50.0); MEAN CORPUSCULAR HEMOGLOBIN 24.7 pg (28.0-32.0); MEAN CORPUSCULAR VOLUME 73.9 fL (81.0-99.0); MEAN PLATELET VOLUME 7.6 fl (7.4-10.4); MONOCYTES % 6.9 % (2.0-8.0); NEUTROPHILS % 64.9 % (40.0-76.0); PLATELET 252 x1000/uL (130-400); RED BLOOD CELL COUNT 3.61 mill/uL (4.2-5.4); RED CELL DISTRIBUTION WIDTH 20.7 % (11.6-14.6)
[2019-09-10 08:21] LABS: CHLORIDE 107 mEq/L (98-107)
[2019-09-10] MEDS: DOCUSATE SODIUM 100MG CAPSULE PO PRN (08:23)
[2019-09-10] MEDS: ATENOLOL 50 MG TABLET PO SCH ×2 (08:24→20:41)
[2019-09-10] MEDS: MAGNESIUM OXIDE 400MG TABLET PO SCH (08:24)
[2019-09-10] MEDS: LINAGLIPTIN 5MG TABLET PO SCH (08:24)
[2019-09-10] MEDS: GLIMEPIRIDE 1MG TABLET PO SCH ×2 (08:24→16:35)
[2019-09-10] MEDS: VENLAFAXINE HCL 37.5MG SR CAPSULE 24HR PO SCH (08:24)
[2019-09-10] MEDS: AMLODIPINE 10MG TABLET PO SCH (08:24)
[2019-09-10] MEDS ORDERED: LACTULOSE 20G/30ML UDC PO NR (09:45)
[2019-09-10] MEDS: BISACODYL 5MG TABLET PO PRN (10:09)
[2019-09-10 13:08] VITALS: BP 161/77
[2019-09-10] MEDS: CLONIDINE 0.1MG TABLET PO PRN (13:31)
[2019-09-10 16:27] LABS: CLARITY URINE CLOUDY (CLEAR); COLOR URINE YELLOW (YELLOW); KETONES URINE NEGATIVE (NEGATIVE); LEUKOCYTE ESTERASE URINE 3+ (NEGATIVE); NITRITE URINE NEGATIVE (NEGATIVE); OCCULT BLOOD URINE NEGATIVE (NEGATIVE); PROTEIN URINE 1+ (NEGATIVE); SPECIFIC GRAVITY URINE 1.013 (1.005-1.030); UROBILINOGEN URINE 0.2 E.U./dL (0.2-1.0)
[2019-09-10] MEDS: OLANZAPINE 10MG TABLET PO SCH (16:35)
[2019-09-10] MEDS: NA PHOS,M-B/NA PHOS,DI-BA ENEMA 118ML PR PRN (17:51)
[2019-09-10 20:00] VITALS: BP 179/74
[2019-09-10] MEDS: FAMOTIDINE 20MG TABLET PO SCH (20:40)
[2019-09-10] MEDS: TERAZOSIN HCL 5MG CAPSULE PO SCH (20:41)
[2019-09-11] MEDS: BLOOD SUGAR DIAGNOSTIC STRIP TEST SCH ×4 (06:17→20:31)
[2019-09-11 08:00] VITALS: BP 128/88
[2019-09-11] MEDS: VENLAFAXINE HCL 37.5MG SR CAPSULE 24HR PO SCH (10:31)
[2019-09-11] MEDS: MAGNESIUM OXIDE 400MG TABLET PO SCH (10:31)
[2019-09-11] MEDS: GLIMEPIRIDE 1MG TABLET PO SCH ×2 (10:31→17:43)
[2019-09-11] MEDS: ATENOLOL 50 MG TABLET PO SCH ×2 (10:32→20:27)
[2019-09-11] MEDS: LINAGLIPTIN 5MG TABLET PO SCH (10:32)
[2019-09-11] MEDS: AMLODIPINE 10MG TABLET PO SCH (10:32)
[2019-09-11] MEDS: OLANZAPINE 10MG TABLET PO SCH (17:43)
[2019-09-11 20:00] VITALS: BP 165/57
[2019-09-11] MEDS: FAMOTIDINE 20MG TABLET PO SCH (20:27)
[2019-09-11] MEDS: TERAZOSIN HCL 5MG CAPSULE PO SCH (20:27)
[2019-09-11 22:20] VITALS: BP 146/53
[2019-09-12] MEDS: BLOOD SUGAR DIAGNOSTIC STRIP TEST SCH ×4 (06:06→21:03)
[2019-09-12] MEDS: CLONIDINE 0.1MG TABLET PO PRN (07:51)
[2019-09-12 08:00] VITALS: BP 170/62
[2019-09-12] MEDS: LINAGLIPTIN 5MG TABLET PO SCH (08:07)
[2019-09-12] MEDS: GLIMEPIRIDE 1MG TABLET PO SCH ×2 (08:07→18:38)
[2019-09-12] MEDS: VENLAFAXINE HCL 37.5MG SR CAPSULE 24HR PO SCH (08:07)
[2019-09-12] MEDS: ATENOLOL 50 MG TABLET PO SCH ×2 (08:08→21:00)
[2019-09-12] MEDS: AMLODIPINE 10MG TABLET PO SCH (08:08)
[2019-09-12] MEDS: MAGNESIUM OXIDE 400MG TABLET PO SCH (08:08)
[2019-09-12] MEDS: LORATADINE 10MG TABLET PO SCH (13:56)
[2019-09-12] MEDS: OLANZAPINE 10MG TABLET PO SCH (18:38)
[2019-09-12 20:00] VITALS: BP 106/66
[2019-09-12] MEDS: TERAZOSIN HCL 5MG CAPSULE PO SCH (21:00)
[2019-09-12] MEDS: FLUTICASONE PROPIONATE 50MCG/SPRAY BOTTLE BOTHNSTRLS SCH (21:48)
[2019-09-12] MEDS: FAMOTIDINE 20MG TABLET PO SCH (21:51)
[2019-09-12] MEDS: BISACODYL 5MG TABLET PO PRN (21:51)
[2019-09-13] MEDS: NA PHOS,M-B/NA PHOS,DI-BA ENEMA 118ML PR PRN (04:47)
[2019-09-13] MEDS: BLOOD SUGAR DIAGNOSTIC STRIP TEST SCH ×4 (06:02→20:43)
[2019-09-13 08:00] VITALS: BP 130/67
[2019-09-13] MEDS: FLUTICASONE PROPIONATE 50MCG/SPRAY BOTTLE BOTHNSTRLS SCH ×2 (08:44→20:37)
[2019-09-13] MEDS: LINAGLIPTIN 5MG TABLET PO SCH (08:45)
[2019-09-13] MEDS: AMLODIPINE 10MG TABLET PO SCH (08:45)
[2019-09-13] MEDS: GLIMEPIRIDE 1MG TABLET PO SCH ×2 (08:45→17:19)
[2019-09-13] MEDS: MAGNESIUM OXIDE 400MG TABLET PO SCH (08:45)
[2019-09-13] MEDS: VENLAFAXINE HCL 37.5MG SR CAPSULE 24HR PO SCH (08:46)
[2019-09-13] MEDS: ATENOLOL 50 MG TABLET PO SCH ×2 (08:46→20:38)
[2019-09-13] MEDS: LORATADINE 10MG TABLET PO SCH (08:46)
[2019-09-13] MEDS ORDERED: LORATADINE/PSEUDOEPHED 5/120MG TABLET 12HR PO SCH (09:00)
[2019-09-13] MEDS: OLANZAPINE 10MG TABLET PO SCH (17:20)
[2019-09-13] MEDS: METFORMIN HCL 500MG TABLET PO SCH (17:20)
[2019-09-13 20:00] VITALS: BP 165/66
[2019-09-13] MEDS: TERAZOSIN HCL 5MG CAPSULE PO SCH (20:38)
[2019-09-13] MEDS: FAMOTIDINE 20MG TABLET PO SCH (20:38)
[2019-09-13 22:15] VITALS: BP 147/65
[2019-09-14] MEDS: BLOOD SUGAR DIAGNOSTIC STRIP TEST SCH ×4 (06:02→20:48)
[2019-09-14 07:01] LABS: BASOPHILS % 0.4 % (0.0-2.0); EOSINOPHILS % 0.2 % (0.0-5.0); HEMATOCRIT. 24.2 % (36.0-48.0); HEMOGLOBIN. 8.1 g/dL (12.0-16.0); LYMPHOCYTES % 27.5 % (20.0-50.0); MEAN CORPUSCULAR HEMOGLOBIN 24.8 pg (28.0-32.0); MEAN PLATELET VOLUME 7.2 fl (7.4-10.4); MONOCYTES % 8.7 % (2.0-8.0); NEUTROPHILS % 63.2 % (40.0-76.0); PLATELET 240 x1000/uL (130-400); RED BLOOD CELL COUNT 3.27 mill/uL (4.2-5.4); RED CELL DISTRIBUTION WIDTH 20.5 % (11.6-14.6)
[2019-09-14 08:00] VITALS: BP 166/63
[2019-09-14] MEDS: VENLAFAXINE HCL 37.5MG SR CAPSULE 24HR PO SCH (08:49)
[2019-09-14] MEDS: LORATADINE 10MG TABLET PO SCH (08:49)
[2019-09-14] MEDS: MAGNESIUM OXIDE 400MG TABLET PO SCH (08:49)
[2019-09-14] MEDS: METFORMIN HCL 500MG TABLET PO SCH ×2 (08:49→16:20)
[2019-09-14] MEDS: GLIMEPIRIDE 1MG TABLET PO SCH ×2 (08:49→16:21)
[2019-09-14] MEDS: AMLODIPINE 10MG TABLET PO SCH (08:50)
[2019-09-14] MEDS: FLUTICASONE PROPIONATE 50MCG/SPRAY BOTTLE BOTHNSTRLS SCH ×2 (08:50→21:01)
[2019-09-14] MEDS: ATENOLOL 50 MG TABLET PO SCH ×2 (08:50→21:01)
[2019-09-14] MEDS: LINAGLIPTIN 5MG TABLET PO SCH (08:50)
[2019-09-14] MEDS ORDERED: TEMAZEPAM 15MG CAPSULE PO PRN (11:00)
[2019-09-14 12:16] LABS: TOTAL IRON BINDING CAPACITY 269 ug/dL (250-450)
[2019-09-14] MEDS: OLANZAPINE 10MG TABLET PO SCH (16:21)
[2019-09-14 20:00] VITALS: BP 142/65
[2019-09-14] MEDS: TERAZOSIN HCL 5MG CAPSULE PO SCH (21:01)
[2019-09-14] MEDS: FAMOTIDINE 20MG TABLET PO SCH (21:01)
[2019-09-15] MEDS: BLOOD SUGAR DIAGNOSTIC STRIP TEST SCH ×4 (06:01→21:50)
[2019-09-15 08:00] VITALS: BP 149/60
[2019-09-15] MEDS: GLIMEPIRIDE 1MG TABLET PO SCH ×2 (09:43→17:15)
[2019-09-15] MEDS: LORATADINE 10MG TABLET PO SCH (09:43)
[2019-09-15] MEDS: AMLODIPINE 10MG TABLET PO SCH (09:44)
[2019-09-15] MEDS: MAGNESIUM OXIDE 400MG TABLET PO SCH (09:44)
[2019-09-15] MEDS: LINAGLIPTIN 5MG TABLET PO SCH (09:44)
[2019-09-15] MEDS: ATENOLOL 50 MG TABLET PO SCH ×2 (09:45→21:38)
[2019-09-15] MEDS: METFORMIN HCL 500MG TABLET PO SCH ×2 (09:45→17:15)
[2019-09-15] MEDS: VENLAFAXINE HCL 37.5MG SR CAPSULE 24HR PO SCH (09:49)
[2019-09-15] MEDS: FLUTICASONE PROPIONATE 50MCG/SPRAY BOTTLE BOTHNSTRLS SCH (09:51)
[2019-09-15] MEDS: FERROUS SULFATE 325MG TABLET PO SCH ×2 (14:20→17:15)
[2019-09-15] MEDS: OLANZAPINE 10MG TABLET PO SCH (17:15)
[2019-09-15] MEDS: BISACODYL 5MG TABLET PO PRN (19:01)
[2019-09-15 20:00] VITALS: BP 157/70
[2019-09-15] MEDS: TERAZOSIN HCL 5MG CAPSULE PO SCH (21:33)
[2019-09-15] MEDS: FAMOTIDINE 20MG TABLET PO SCH (21:33)
[2019-09-16] MEDS: BLOOD SUGAR DIAGNOSTIC STRIP TEST SCH ×4 (05:58→21:00)
[2019-09-16 08:00] VITALS: BP 146/53
[2019-09-16] MEDS: GLIMEPIRIDE 1MG TABLET PO SCH ×2 (08:33→16:25)
[2019-09-16] MEDS: VENLAFAXINE HCL 37.5MG SR CAPSULE 24HR PO SCH (08:33)
[2019-09-16] MEDS: MULTIVITAMINS,THER W-MINERALS TABLET PO SCH (08:33)
[2019-09-16] MEDS: FERROUS SULFATE 325MG TABLET PO SCH ×3 (08:34→16:25)
[2019-09-16] MEDS: LORATADINE 10MG TABLET PO SCH (08:34)
[2019-09-16] MEDS: LINAGLIPTIN 5MG TABLET PO SCH (08:34)
[2019-09-16] MEDS: METFORMIN HCL 500MG TABLET PO SCH ×2 (08:34→16:25)
[2019-09-16] MEDS: MAGNESIUM OXIDE 400MG TABLET PO SCH (08:34)
[2019-09-16] MEDS: AMLODIPINE 10MG TABLET PO SCH (08:35)
[2019-09-16] MEDS: ATENOLOL 50 MG TABLET PO SCH ×3 (08:36→21:06)
[2019-09-16] MEDS: BISACODYL 5MG TABLET PO PRN (16:25)
[2019-09-16] MEDS: OLANZAPINE 10MG TABLET PO SCH (16:26)
[2019-09-16] MEDS: FLUTICASONE PROPIONATE 50MCG/SPRAY BOTTLE BOTHNSTRLS SCH (16:30)
[2019-09-16 20:00] VITALS: BP 147/69
[2019-09-16] MEDS: TERAZOSIN HCL 5MG CAPSULE PO SCH ×2 (21:00→21:07)
[2019-09-16] MEDS: FAMOTIDINE 20MG TABLET PO SCH (21:06)
[2019-09-17] MEDS: BLOOD SUGAR DIAGNOSTIC STRIP TEST SCH ×4 (06:15→20:30)
[2019-09-17 08:00] VITALS: BP_SYST 132; BP_SYST 161; BP_DIAS 56; BP_DIAS 71
[2019-09-17 08:02] LABS: CHLORIDE 108 mEq/L (98-107)
[2019-09-17 08:18] LABS: BASOPHILS % 0.6 % (0.0-2.0); EOSINOPHILS % 0.2 % (0.0-5.0); HEMATOCRIT. 25.4 % (36.0-48.0); HEMOGLOBIN. 8.4 g/dL (12.0-16.0); LYMPHOCYTES % 26.2 % (20.0-50.0); MEAN CORPUSCULAR HEMOGLOBIN 24.7 pg (28.0-32.0); MEAN CORPUSCULAR VOLUME 74.7 fL (81.0-99.0); MEAN PLATELET VOLUME 7.9 fl (7.4-10.4); MONOCYTES % 6.5 % (2.0-8.0); NEUTROPHILS % 66.5 % (40.0-76.0); PLATELET 214 x1000/uL (130-400); RED CELL DISTRIBUTION WIDTH 20.4 % (11.6-14.6)
[2019-09-17 08:26] LABS: HDL CHOLESTEROL 51 mg/dL (40-59); LDL CHOLESTEROL 120 mg/dL (5-100)
[2019-09-17] MEDS: MAGNESIUM OXIDE 400MG TABLET PO SCH (08:57)
[2019-09-17] MEDS: MULTIVITAMINS,THER W-MINERALS TABLET PO SCH (08:57)
[2019-09-17] MEDS: LINAGLIPTIN 5MG TABLET PO SCH (08:57)
[2019-09-17] MEDS: LORATADINE 10MG TABLET PO SCH (08:57)
[2019-09-17] MEDS: AMLODIPINE 10MG TABLET PO SCH (08:57)
[2019-09-17] MEDS: VENLAFAXINE HCL 37.5MG SR CAPSULE 24HR PO SCH (08:57)
[2019-09-17] MEDS: METFORMIN HCL 500MG TABLET PO SCH ×2 (08:57→16:30)
[2019-09-17] MEDS: GLIMEPIRIDE 1MG TABLET PO SCH (08:57)
[2019-09-17] MEDS: FERROUS SULFATE 325MG TABLET PO SCH ×3 (08:57→16:29)
[2019-09-17] MEDS: ATENOLOL 50 MG TABLET PO SCH ×2 (08:58→20:25)
[2019-09-17] MEDS: FLUTICASONE PROPIONATE 50MCG/SPRAY BOTTLE BOTHNSTRLS SCH (09:00)
[2019-09-17] MEDS: LEVOTHYROXINE SODIUM 25MCG TABLET PO SCH (10:28)
[2019-09-17] MEDS: DOCUSATE SODIUM 100MG CAPSULE PO SCH ×2 (10:28→16:30)
[2019-09-17] MEDS: PRIMIDONE 50MG TABLET PO SCH ×2 (10:29→20:23)
[2019-09-17] MEDS: CLOPIDOGREL 75MG TABLET PO SCH (10:29)
[2019-09-17] MEDS: LOSARTAN POTASSIUM 50 MG TABLET PO SCH (10:31)
[2019-09-17] MEDS: OLANZAPINE 10MG TABLET PO SCH (16:30)
[2019-09-17 20:00] VITALS: BP 166/69
[2019-09-17] MEDS: FAMOTIDINE 20MG TABLET PO SCH (20:23)
[2019-09-17] MEDS: TERAZOSIN HCL 5MG CAPSULE PO SCH (20:25)
[2019-09-17] MEDS ORDERED: ATENOLOL 50 MG TABLET PO SCH (21:00)
[2019-09-18] MEDS: BLOOD SUGAR DIAGNOSTIC STRIP TEST SCH ×2 (05:44→11:28)
[2019-09-18] MEDS: LEVOTHYROXINE SODIUM 25MCG TABLET PO SCH (06:09)
[2019-09-18 08:11] VITALS: BP 168/73
[2019-09-18] MEDS: CLOPIDOGREL 75MG TABLET PO SCH (09:49)
[2019-09-18] MEDS: LOSARTAN POTASSIUM 50 MG TABLET PO SCH (09:49)
[2019-09-18] MEDS: DOCUSATE SODIUM 100MG CAPSULE PO SCH (09:49)
[2019-09-18] MEDS: MULTIVITAMINS,THER W-MINERALS TABLET PO SCH (09:49)
[2019-09-18] MEDS: ATENOLOL 50 MG TABLET PO SCH (09:49)
[2019-09-18] MEDS: AMLODIPINE 10MG TABLET PO SCH (09:49)
[2019-09-18] MEDS: LINAGLIPTIN 5MG TABLET PO SCH (09:49)
[2019-09-18] MEDS: PRIMIDONE 50MG TABLET PO SCH (09:49)
[2019-09-18] MEDS: GLIMEPIRIDE 1MG TABLET PO SCH (09:50)
[2019-09-18] MEDS: VENLAFAXINE HCL 37.5MG SR CAPSULE 24HR PO SCH (09:50)
[2019-09-18] MEDS: MAGNESIUM OXIDE 400MG TABLET PO SCH (09:50)
[2019-09-18] MEDS: LORATADINE 10MG TABLET PO SCH (09:50)
[2019-09-18] MEDS: METFORMIN HCL 500MG TABLET PO SCH (09:50)
[2019-09-18] MEDS: FERROUS SULFATE 325MG TABLET PO SCH (09:55)
[2019-09-18] MEDS: FLUTICASONE PROPIONATE 50MCG/SPRAY BOTTLE BOTHNSTRLS SCH (09:55)
[2019-09-18 12:34] VITALS: BP 138/70
== END 2019-09-18 13:00 | disposition home health service (06) | DRG 92 ==
PROVIDERS: ADMIT Psychiatry & Neurology Neurology; ATTEND Specialist
DX: G92 Toxic encephalopathy (principal); E46 Unspecified protein-calorie malnutrition; F05 Delirium due to known physiological condition; I13.0 Hypertensive heart and chronic kidney disease with heart failure and stage 1 through stage 4 chronic kidney disease, or unspecified chronic kidney disease; N17.9 Acute kidney failure, unspecified; J98.11 Atelectasis; E87.6 Hypokalemia; E11.22 Type 2 diabetes mellitus with diabetic chronic kidney disease; E11.65 Type 2 diabetes mellitus with hyperglycemia; D64.9 Anemia, unspecified; E03.9 Hypothyroidism, unspecified; E86.0 Dehydration; F31.9 Bipolar disorder, unspecified; F41.9 Anxiety disorder, unspecified; E87.5 Hyperkalemia; I48.0 Paroxysmal atrial fibrillation; I50.9 Heart failure, unspecified; J44.9 Chronic obstructive pulmonary disease, unspecified; K22.70 Barrett's esophagus without dysplasia; K59.00 Constipation, unspecified; M32.9 Systemic lupus erythematosus, unspecified; N18.3 Chronic kidney disease, stage 3 (moderate); R62.7 Adult failure to thrive; Z79.4 Long term (current) use of insulin; Z82.49 Family history of ischemic heart disease and other diseases of the circulatory system; Z82.5 Family history of asthma and other chronic lower respiratory diseases; Z87.891 Personal history of nicotine dependence; Z95.3 Presence of xenogenic heart valve; Z68.29 Body mass index [BMI] 29.0-29.9, adult; Z91.81 History of falling
CPT/HCPCS: 36415; 71045; 80048; 80053; 80061; 81003; 82270; 82962; 83036; 83540; 83550; 84443; 85025; 85044; 92523; 93970; 97110; 97112; 97116; 97150; 97162; 97166; 97530; 97535

== ENCOUNTER 2019-11-07 20:03 | Inpatient (IN) | payer MEDICARE, BC ==
[~2019-11-07] VITALS: Ht 157.5 cm; Wt 68.5 kg
[2019-11-07 22:49] LABS: BASOPHILS % 0.4 % (0.0-2.0); EOSINOPHILS % 0.3 % (0.0-5.0); LYMPHOCYTES % 8.5 % (20.0-50.0); MEAN CORPUSCULAR HEMOGLOBIN 23.1 pg (28.0-32.0); MEAN CORPUSCULAR VOLUME 71.5 fL (81.0-99.0); MEAN PLATELET VOLUME 7.3 fl (7.4-10.4); MONOCYTES % 9.9 % (2.0-8.0); NEUTROPHILS % 80.9 % (40.0-76.0); PLATELET 287 x1000/uL (130-400); RED BLOOD CELL COUNT 2.13 mill/uL (4.2-5.4); RED CELL DISTRIBUTION WIDTH 18.7 % (11.6-14.6)
[2019-11-07 22:55] LABS: CHLORIDE 84 mEq/L (98-107)
[2019-11-07 22:56] LABS: HEMATOCRIT. 15.2 % (36.0-48.0); HEMOGLOBIN. 4.9 g/dL (12.0-16.0)
[2019-11-07 23:01] LABS: CLARITY URINE CLEAR (CLEAR); COLOR URINE YELLOW (YELLOW); KETONES URINE NEGATIVE (NEGATIVE); LEUKOCYTE ESTERASE URINE NEGATIVE (NEGATIVE); NITRITE URINE NEGATIVE (NEGATIVE); OCCULT BLOOD URINE NEGATIVE (NEGATIVE); PROTEIN URINE NEGATIVE (NEGATIVE); SPECIFIC GRAVITY URINE 1.007 (1.005-1.030); UROBILINOGEN URINE 0.2 E.U./dL (0.2-1.0)
[2019-11-08] VITALS (11 sets, daily range): BP systolic 124–166; BP diastolic 46–81
[2019-11-08] MEDS ORDERED: SODIUM CHLORIDE 0.9% 1,000 ML IV ONE
[2019-11-08] MEDS ORDERED: ACETAMINOPHEN 650MG/20.3ML UDC GT PRN (11:00)
[2019-11-08] MEDS ORDERED: ONDANSETRON HCL 4MG/2ML INJ IV PRN (11:00)
[2019-11-08] MEDS ORDERED: IPRATROPIUM/ALBUTEROL 0.5-3(2.5)MG/3ML NEB ORI PRN (11:00)
[2019-11-08 11:49] LABS: BASOPHILS % 0.7 % (0.0-2.0); EOSINOPHILS % 0.8 % (0.0-5.0); LYMPHOCYTES % 10.2 % (20.0-50.0); MEAN CORPUSCULAR HEMOGLOBIN 25.7 pg (28.0-32.0); MEAN CORPUSCULAR VOLUME 77.3 fL (81.0-99.0); MONOCYTES % 10.3 % (2.0-8.0); PLATELET 242 x1000/uL (130-400); RED CELL DISTRIBUTION WIDTH 20.1 % (11.6-14.6)
[2019-11-08] MEDS: LOSARTAN POTASSIUM 50 MG TABLET PO SCH (12:34)
[2019-11-08] MEDS: AMLODIPINE 10MG TABLET PO SCH (12:34)
[2019-11-08] MEDS: MAGNESIUM OXIDE 400MG TABLET PO SCH (12:35)
[2019-11-08] MEDS: LEVOTHYROXINE SODIUM 25MCG TABLET PO SCH (12:35)
[2019-11-08] MEDS: VENLAFAXINE HCL 37.5MG SR CAPSULE 24HR PO SCH (12:35)
[2019-11-08] MEDS: SODIUM CHLORIDE 0.9% INJ 3ML FLUSH IVF SCH ×2 (14:00→21:10)
[2019-11-08 14:03] LABS: CLARITY URINE CLEAR (CLEAR); COLOR URINE YELLOW (YELLOW); KETONES URINE NEGATIVE (NEGATIVE); LEUKOCYTE ESTERASE URINE TRACE (NEGATIVE); NITRITE URINE NEGATIVE (NEGATIVE); OCCULT BLOOD URINE NEGATIVE (NEGATIVE); PH URINE 6.5 (4.5-8.0); PROTEIN URINE NEGATIVE (NEGATIVE); SPECIFIC GRAVITY URINE 1.004 (1.005-1.030); UROBILINOGEN URINE 0.2 E.U./dL (0.2-1.0)
[2019-11-08] MEDS: PANTOPRAZOLE SODIUM 40 MG/VIAL IV SCH (17:36)
[2019-11-08] MEDS: DOCUSATE SODIUM 100MG CAPSULE PO SCH (17:36)
[2019-11-08] MEDS: METFORMIN HCL 500MG TABLET PO SCH (17:36)
[2019-11-08] MEDS ORDERED: [UNRECOGNIZED DRUG - OTHER] IV SCH ×2 (18:00)
[2019-11-08] MEDS ORDERED: SODIUM CHLORIDE 0.45% IV SCH ×2 (18:00)
[2019-11-08] MEDS ORDERED: DEXTROSE 5% IV SCH ×2 (18:00)
[2019-11-08] MEDS ORDERED: POTASSIUM CHLORIDE 20MEQ/PACKET PO NR (18:00)
[2019-11-08] MEDS: DEXT 5%/0.45% NACL 1000ML 1,000 ML IV SCH (18:23)
[2019-11-08] MEDS ORDERED: FAMOTIDINE 20MG TABLET PO SCH (21:00)
[2019-11-08] MEDS: FLUTICASONE PROPIONATE 50MCG/SPRAY BOTTLE BOTHNSTRLS SCH (21:07)
[2019-11-08] MEDS: OLANZAPINE 10MG TABLET PO SCH (21:09)
[2019-11-08] MEDS: ATENOLOL 50 MG TABLET PO SCH (21:09)
[2019-11-08] MEDS: TERAZOSIN HCL 5MG CAPSULE PO SCH (21:09)
[2019-11-08] MEDS ORDERED: DEXTROSE 50% WATER 50ML SYRINGE IV PRN (23:30)
[2019-11-09] VITALS (25 sets, daily range): BP systolic 120–150; BP diastolic 50–89
[2019-11-09] MEDS: SODIUM CHLORIDE 0.9% INJ 3ML FLUSH IVF SCH ×3 (05:56→21:17)
[2019-11-09] MEDS: LEVOTHYROXINE SODIUM 25MCG TABLET PO SCH ×2 (05:56→06:00)
[2019-11-09] MEDS: BLOOD SUGAR DIAGNOSTIC STRIP TEST SCH ×4 (05:56→21:16)
[2019-11-09] MEDS: INSULIN LISPRO 100 UNITS/ML SUBCUT SCH ×4 (07:20→21:00)
[2019-11-09 07:28] LABS: HEMATOCRIT. 22.2 % (36.0-48.0); HEMOGLOBIN. 7.4 g/dL (12.0-16.0); MEAN CORPUSCULAR HEMOGLOBIN 26.1 pg (28.0-32.0); MEAN CORPUSCULAR VOLUME 78.2 fL (81.0-99.0); MEAN PLATELET VOLUME 6.8 fl (7.4-10.4); PLATELET 223 x1000/uL (130-400); RED BLOOD CELL COUNT 2.84 mill/uL (4.2-5.4); RED CELL DISTRIBUTION WIDTH 19.5 % (11.6-14.6)
[2019-11-09 07:39] LABS: CHLORIDE 98 mEq/L (98-107)
[2019-11-09 07:50] LABS: TOTAL IRON BINDING CAPACITY 261 ug/dL (250-450)
[2019-11-09] MEDS: CLOPIDOGREL 75MG TABLET PO SCH (08:36)
[2019-11-09] MEDS: LINAGLIPTIN 5MG TABLET PO SCH (08:37)
[2019-11-09] MEDS: ATENOLOL 50 MG TABLET PO SCH ×2 (08:38→21:16)
[2019-11-09] MEDS: METFORMIN HCL 500MG TABLET PO SCH ×2 (08:38→17:08)
[2019-11-09] MEDS: AMLODIPINE 10MG TABLET PO SCH (08:39)
[2019-11-09] MEDS: PANTOPRAZOLE SODIUM 40 MG/VIAL IV SCH ×2 (08:39→17:08)
[2019-11-09] MEDS: DOCUSATE SODIUM 100MG CAPSULE PO SCH ×2 (08:39→17:08)
[2019-11-09] MEDS: MAGNESIUM OXIDE 400MG TABLET PO SCH (08:39)
[2019-11-09] MEDS: FLUTICASONE PROPIONATE 50MCG/SPRAY BOTTLE BOTHNSTRLS SCH ×2 (08:39→21:26)
[2019-11-09] MEDS: VENLAFAXINE HCL 37.5MG SR CAPSULE 24HR PO SCH (08:39)
[2019-11-09] MEDS: LOSARTAN POTASSIUM 50 MG TABLET PO SCH (08:39)
[2019-11-09] MEDS: DEXT 5%/0.45% NACL 1000ML 1,000 ML IV SCH (08:39)
[2019-11-09] MEDS ORDERED: FUROSEMIDE 40MG/4ML VIAL IVP NR (10:15)
[2019-11-09] MEDS: IRON SUCROSE COMPLEX 100 MG/5 ML ML IV SCH (13:26)
[2019-11-09 13:57] LABS: PLATELET ESTIMATE NORMAL
[2019-11-09] MEDS: TERAZOSIN HCL 5MG CAPSULE PO SCH (21:15)
[2019-11-09] MEDS: OLANZAPINE 10MG TABLET PO SCH (21:16)
[2019-11-10] VITALS (15 sets, daily range): BP systolic 123–174; BP diastolic 34–90
[2019-11-10] MEDS: LEVOTHYROXINE SODIUM 25MCG TABLET PO SCH (05:45)
[2019-11-10] MEDS: BLOOD SUGAR DIAGNOSTIC STRIP TEST SCH ×4 (05:45→20:45)
[2019-11-10] MEDS: SODIUM CHLORIDE 0.9% INJ 3ML FLUSH IVF SCH ×3 (05:46→22:00)
[2019-11-10 06:32] LABS: BASOPHILS % 0.4 % (0.0-2.0); EOSINOPHILS % 2.4 % (0.0-5.0); HEMATOCRIT. 27.3 % (36.0-48.0); HEMOGLOBIN. 8.9 g/dL (12.0-16.0); MEAN CORPUSCULAR HEMOGLOBIN 26.1 pg (28.0-32.0); MEAN CORPUSCULAR VOLUME 79.8 fL (81.0-99.0); MEAN PLATELET VOLUME 6.9 fl (7.4-10.4); MONOCYTES % 7.3 % (2.0-8.0); NEUTROPHILS % 78.9 % (40.0-76.0); PLATELET 230 x1000/uL (130-400); RED BLOOD CELL COUNT 3.42 mill/uL (4.2-5.4); RED CELL DISTRIBUTION WIDTH 18.8 % (11.6-14.6)
[2019-11-10] MEDS: INSULIN LISPRO 100 UNITS/ML SUBCUT SCH ×4 (07:20→20:45)
[2019-11-10] MEDS: ATENOLOL 50 MG TABLET PO SCH (08:50)
[2019-11-10] MEDS: CLOPIDOGREL 75MG TABLET PO SCH (08:51)
[2019-11-10] MEDS: AMLODIPINE 10MG TABLET PO SCH (08:51)
[2019-11-10] MEDS: IRON SUCROSE COMPLEX 100 MG/5 ML ML IV SCH (08:52)
[2019-11-10] MEDS: MAGNESIUM OXIDE 400MG TABLET PO SCH (08:53)
[2019-11-10] MEDS: LOSARTAN POTASSIUM 50 MG TABLET PO SCH ×2 (08:55→20:34)
[2019-11-10] MEDS: METFORMIN HCL 500MG TABLET PO SCH ×2 (08:55→16:29)
[2019-11-10] MEDS: LINAGLIPTIN 5MG TABLET PO SCH (08:56)
[2019-11-10] MEDS: PANTOPRAZOLE SODIUM 40 MG/VIAL IV SCH ×2 (09:10→16:27)
[2019-11-10] MEDS ORDERED: POTASSIUM CHLORIDE 20MEQ/PACKET PO NR (09:15)
[2019-11-10] MEDS: VENLAFAXINE HCL 37.5MG SR CAPSULE 24HR PO SCH (09:40)
[2019-11-10] MEDS: DOCUSATE SODIUM 250MG CAPSULE PO SCH ×2 (09:40→16:28)
[2019-11-10] MEDS: FLUTICASONE PROPIONATE 50MCG/SPRAY BOTTLE BOTHNSTRLS SCH ×2 (09:44→20:32)
[2019-11-10] MEDS ORDERED: FUROSEMIDE 20MG/2ML VIAL IVP NR (10:00)
[2019-11-10] MEDS: DEXT 5%/0.45% NACL 1000ML 1,000 ML IV SCH (16:32)
[2019-11-10] MEDS: OLANZAPINE 10MG TABLET PO SCH (20:34)
[2019-11-10] MEDS: TERAZOSIN HCL 5MG CAPSULE PO SCH (20:35)
[2019-11-10] MEDS: ATENOLOL 25MG TABLET PO SCH (20:35)
[2019-11-11] VITALS (12 sets, daily range): BP systolic 104–148; BP diastolic 50–95
[2019-11-11] MEDS: SODIUM CHLORIDE 0.9% INJ 3ML FLUSH IVF SCH ×3 (05:48→21:40)
[2019-11-11] MEDS: LEVOTHYROXINE SODIUM 25MCG TABLET PO SCH (05:48)
[2019-11-11] MEDS: BLOOD SUGAR DIAGNOSTIC STRIP TEST SCH ×4 (05:53→20:38)
[2019-11-11] MEDS: INSULIN LISPRO 100 UNITS/ML SUBCUT SCH ×4 (05:54→20:38)
[2019-11-11 07:25] LABS: BASOPHILS % 0.7 % (0.0-2.0); EOSINOPHILS % 2.7 % (0.0-5.0); HEMOGLOBIN. 8.7 g/dL (12.0-16.0); LYMPHOCYTES % 11.5 % (20.0-50.0); MEAN CORPUSCULAR HEMOGLOBIN 26.6 pg (28.0-32.0); MEAN CORPUSCULAR VOLUME 79.8 fL (81.0-99.0); MEAN PLATELET VOLUME 6.9 fl (7.4-10.4); MONOCYTES % 6.4 % (2.0-8.0); NEUTROPHILS % 78.7 % (40.0-76.0); PLATELET 224 x1000/uL (130-400); RED BLOOD CELL COUNT 3.25 mill/uL (4.2-5.4); RED CELL DISTRIBUTION WIDTH 19.3 % (11.6-14.6)
[2019-11-11] MEDS: PANTOPRAZOLE SODIUM 40 MG/VIAL IV SCH ×2 (08:19→17:13)
[2019-11-11] MEDS: DOCUSATE SODIUM 250MG CAPSULE PO SCH ×2 (08:19→17:13)
[2019-11-11] MEDS: METFORMIN HCL 500MG TABLET PO SCH ×2 (08:19→17:13)
[2019-11-11] MEDS: IRON SUCROSE COMPLEX 100 MG/5 ML ML IV SCH (08:19)
[2019-11-11] MEDS: VENLAFAXINE HCL 37.5MG SR CAPSULE 24HR PO SCH (08:20)
[2019-11-11] MEDS: LINAGLIPTIN 5MG TABLET PO SCH (08:20)
[2019-11-11] MEDS: AMLODIPINE 10MG TABLET PO SCH (08:20)
[2019-11-11] MEDS: LOSARTAN POTASSIUM 50 MG TABLET PO SCH ×2 (08:20→20:28)
[2019-11-11] MEDS: ATENOLOL 25MG TABLET PO SCH ×2 (08:21→20:29)
[2019-11-11] MEDS: FLUTICASONE PROPIONATE 50MCG/SPRAY BOTTLE BOTHNSTRLS SCH ×2 (08:24→20:28)
[2019-11-11] MEDS: TERAZOSIN HCL 5MG CAPSULE PO SCH (20:29)
[2019-11-11] MEDS: OLANZAPINE 10MG TABLET PO SCH (20:30)
[2019-11-12] VITALS (9 sets, daily range): BP systolic 125–148; BP diastolic 64–88
[2019-11-12] MEDS: SODIUM CHLORIDE 0.9% INJ 3ML FLUSH IVF SCH ×2 (05:48→14:00)
[2019-11-12] MEDS: BLOOD SUGAR DIAGNOSTIC STRIP TEST SCH ×2 (05:48→11:50)
[2019-11-12] MEDS: LEVOTHYROXINE SODIUM 25MCG TABLET PO SCH (05:51)
[2019-11-12 06:14] LABS: CHLORIDE 106 mEq/L (98-107)
[2019-11-12 06:36] LABS: BASOPHILS % 0.9 % (0.0-2.0); EOSINOPHILS % 2.8 % (0.0-5.0); HEMATOCRIT. 27.2 % (36.0-48.0); LYMPHOCYTES % 17.1 % (20.0-50.0); MEAN CORPUSCULAR HEMOGLOBIN 26.9 pg (28.0-32.0); MEAN CORPUSCULAR VOLUME 81.2 fL (81.0-99.0); MEAN PLATELET VOLUME 7.4 fl (7.4-10.4); MONOCYTES % 6.5 % (2.0-8.0); NEUTROPHILS % 72.7 % (40.0-76.0); PLATELET 251 x1000/uL (130-400); RED BLOOD CELL COUNT 3.36 mill/uL (4.2-5.4); RED CELL DISTRIBUTION WIDTH 20.1 % (11.6-14.6)
[2019-11-12] MEDS: INSULIN LISPRO 100 UNITS/ML SUBCUT SCH ×2 (07:20→12:04)
[2019-11-12] MEDS: LINAGLIPTIN 5MG TABLET PO SCH (08:51)
[2019-11-12] MEDS: LOSARTAN POTASSIUM 50 MG TABLET PO SCH (08:51)
[2019-11-12] MEDS: PANTOPRAZOLE SODIUM 40 MG/VIAL IV SCH (08:51)
[2019-11-12] MEDS: AMLODIPINE 10MG TABLET PO SCH (08:51)
[2019-11-12] MEDS: METFORMIN HCL 500MG TABLET PO SCH (08:51)
[2019-11-12] MEDS: VENLAFAXINE HCL 37.5MG SR CAPSULE 24HR PO SCH (08:51)
[2019-11-12] MEDS: DOCUSATE SODIUM 250MG CAPSULE PO SCH (08:52)
[2019-11-12] MEDS: ATENOLOL 25MG TABLET PO SCH (08:52)
[2019-11-12] MEDS ORDERED: NA PHOS,M-B/NA PHOS,DI-BA ENEMA 118ML PR SCH (10:00)
== END 2019-11-12 16:21 | disposition home or self-care (01) | DRG 380 ==
LOC: ER 20:03 → 3WST 23:42 → ENRESERV 11-08 07:26 → 3WST 11-08 08:09 → UNDOADMIN 11-08 08:09
PROVIDERS: ADMIT Specialist; ATTEND Specialist
PROC: 30233N1 Transfusion of Nonautologous Red Blood Cells into Peripheral Vein, Percutaneous Approach (ICD-10-PCS; principal; 2019-11-08)
DX: K22.11 Ulcer of esophagus with bleeding (principal); E43 Unspecified severe protein-calorie malnutrition; E87.1 Hypo-osmolality and hyponatremia; I50.32 Chronic diastolic (congestive) heart failure; K57.91 Diverticulosis of intestine, part unspecified, without perforation or abscess with bleeding; K55.21 Angiodysplasia of colon with hemorrhage; D64.9 Anemia, unspecified; F31.9 Bipolar disorder, unspecified; E03.9 Hypothyroidism, unspecified; E11.9 Type 2 diabetes mellitus without complications; E78.5 Hyperlipidemia, unspecified; E87.8 Other disorders of electrolyte and fluid balance, not elsewhere classified; H91.10 Presbycusis, unspecified ear; I48.91 Unspecified atrial fibrillation; M32.9 Systemic lupus erythematosus, unspecified; R29.6 Repeated falls; I25.10 Atherosclerotic heart disease of native coronary artery without angina pectoris; K44.9 Diaphragmatic hernia without obstruction or gangrene; I11.0 Hypertensive heart disease with heart failure; E78.00 Pure hypercholesterolemia, unspecified; D50.9 Iron deficiency anemia, unspecified; J30.9 Allergic rhinitis, unspecified; E87.6 Hypokalemia; Z86.73 Personal history of transient ischemic attack (TIA), and cerebral infarction without residual deficits; Z79.899 Other long term (current) drug therapy; Z68.27 Body mass index [BMI] 27.0-27.9, adult; Z79.4 Long term (current) use of insulin; Z82.3 Family history of stroke; Z82.49 Family history of ischemic heart disease and other diseases of the circulatory system; Z82.5 Family history of asthma and other chronic lower respiratory diseases; Z87.891 Personal history of nicotine dependence; Z90.710 Acquired absence of both cervix and uterus; Z91.81 History of falling; Z95.3 Presence of xenogenic heart valve; Z86.010 Personal history of colon polyps
CPT/HCPCS: 36415; 71045; 80048; 80053; 81003; 82270; 82728; 82962; 83540; 83550; 83880; 84484; 85025; 86850; 86900; 86920; 93005; 93306; 94640; 97116; 97162; 97166; 99285; C9113; J1815; J1940; J7030; P9016

== ENCOUNTER 2020-05-23 10:40 | Inpatient (IN) | payer MEDICARE, BC ==
[~2020-05-23] VITALS: Ht 157.5 cm; Wt 85.7 kg
[~2020-05-23 10:40] MED LIST changes: -ATEN-42 PO; -PRIM50TA31 PO
[2020-05-23 14:24] LABS: HEMATOCRIT. 30.7 % (36.0-48.0); HEMOGLOBIN. 10.4 g/dL (12.0-16.0); MEAN CORPUSCULAR HEMOGLOBIN 28.8 pg (28.0-32.0); MEAN CORPUSCULAR VOLUME 85.2 fL (81.0-99.0); MEAN PLATELET VOLUME 7.8 fl (7.4-10.4); PLATELET 129 x1000/uL (130-400); RED CELL DISTRIBUTION WIDTH 14.9 % (11.6-14.6)
[2020-05-23 14:49] LABS: PLATELET ESTIMATE SLIGHTLY DECREASED
[2020-05-23] MEDS ORDERED: SODIUM CHLORIDE 0.9% 1,000 ML IV ONE (15:00)
[2020-05-23 17:11] VITALS: BP 108/51
[2020-05-23] MEDS ORDERED: MAGNESIUM/ALUMINUM HYDROXIDE/SIMETHICONE 30ML UDC PO PRN (19:30)
[2020-05-23] MEDS ORDERED: IPRATROPIUM/ALBUTEROL 0.5-3(2.5)MG/3ML NEB HHN PRN (19:30)
[2020-05-23] MEDS ORDERED: DOCUSATE SODIUM 100MG CAPSULE PO PRN (19:30)
[2020-05-23] MEDS ORDERED: GUAIFENESIN 200MG/10ML SUGAR FREE UDC PO PRN (19:30)
[2020-05-23] MEDS ORDERED: DIPHENHYDRAMINE 50MG/ML VIAL IV PRN (19:30)
[2020-05-23] MEDS ORDERED: ONDANSETRON HCL 4MG/2ML INJ IV PRN (19:30)
[2020-05-23] MEDS ORDERED: FUROSEMIDE 20MG TABLET PO PRN (19:30)
[2020-05-23 20:00] VITALS: BP 138/60
[2020-05-23] MEDS: SODIUM CHLORIDE 0.9% 1,000 ML IV SCH (21:53)
[2020-05-23] MEDS: TERAZOSIN HCL 5MG CAPSULE PO SCH (21:54)
[2020-05-23] MEDS: ATORVASTATIN CALCIUM 20MG TABLET PO SCH (21:54)
[2020-05-23] MEDS: OLANZAPINE 10MG TABLET PO SCH (21:55)
[2020-05-23] MEDS: FAMOTIDINE 20MG TABLET PO SCH (21:55)
[2020-05-23] MEDS: FLUTICASONE PROPIONATE 50MCG/SPRAY BOTTLE BOTHNSTRLS SCH (21:56)
[2020-05-24] VITALS: BP 129/59
[2020-05-24 04:00] VITALS: BP 142/64
[2020-05-24] MEDS: LEVOTHYROXINE SODIUM 25MCG TABLET PO SCH (06:05)
[2020-05-24 07:34] LABS: HEMATOCRIT. 26.8 % (36.0-48.0); HEMOGLOBIN. 9.3 g/dL (12.0-16.0); MEAN CORPUSCULAR HEMOGLOBIN 29.1 pg (28.0-32.0); MEAN CORPUSCULAR VOLUME 83.9 fL (81.0-99.0); MEAN PLATELET VOLUME 8.1 fl (7.4-10.4); PLATELET 138 x1000/uL (130-400); RED BLOOD CELL COUNT 3.19 mill/uL (4.2-5.4)
[2020-05-24 08:00] VITALS: BP 124/65
[2020-05-24] MEDS: CLOPIDOGREL 75MG TABLET PO SCH (10:04)
[2020-05-24] MEDS: ATENOLOL 50 MG TABLET PO SCH ×2 (10:04→17:00)
[2020-05-24] MEDS: LOSARTAN POTASSIUM 50 MG TABLET PO SCH (10:04)
[2020-05-24] MEDS: LINAGLIPTIN 5MG TABLET PO SCH (10:04)
[2020-05-24] MEDS: AMLODIPINE 10MG TABLET PO SCH (10:04)
[2020-05-24] MEDS: FLUTICASONE PROPIONATE 50MCG/SPRAY BOTTLE BOTHNSTRLS SCH ×2 (10:05→20:46)
[2020-05-24] MEDS: FERROUS SULFATE 300MG/5ML UDC PO SCH ×2 (10:05→17:02)
[2020-05-24 12:00] VITALS: BP 129/61
[2020-05-24] MEDS: POTASSIUM CHLORIDE 20MEQ TABLET SR PO SCH (12:09)
[2020-05-24] MEDS: BLOOD SUGAR DIAGNOSTIC STRIP TEST SCH ×3 (12:20→20:23)
[2020-05-24] MEDS: INSULIN LISPRO 100 UNITS/ML SUBCUT SCH ×3 (12:20→20:44)
[2020-05-24] MEDS: VENLAFAXINE HCL 37.5MG SR CAPSULE 24HR PO SCH (12:25)
[2020-05-24 16:00] VITALS: BP 99/55
[2020-05-24] MEDS: SODIUM CHLORIDE 0.9% 1,000 ML IV SCH (17:14)
[2020-05-24 19:45] LABS: PLATELET ESTIMATE NORMAL
[2020-05-24 20:00] VITALS: BP 157/62
[2020-05-24] MEDS: OLANZAPINE 10MG TABLET PO SCH (20:39)
[2020-05-24] MEDS: ATORVASTATIN CALCIUM 20MG TABLET PO SCH (20:40)
[2020-05-24] MEDS: FAMOTIDINE 20MG TABLET PO SCH (20:46)
[2020-05-24] MEDS: TERAZOSIN HCL 5MG CAPSULE PO SCH (20:47)
[2020-05-25] VITALS: BP 124/72
[2020-05-25 04:00] VITALS: BP 125/69
[2020-05-25] MEDS: LEVOTHYROXINE SODIUM 25MCG TABLET PO SCH (06:20)
[2020-05-25] MEDS: BLOOD SUGAR DIAGNOSTIC STRIP TEST SCH ×4 (06:22→20:58)
[2020-05-25] MEDS: INSULIN LISPRO 100 UNITS/ML SUBCUT SCH ×4 (06:22→20:45)
[2020-05-25 08:00] VITALS: BP 93/60
[2020-05-25 08:31] LABS: HEMATOCRIT. 27.8 % (36.0-48.0); HEMOGLOBIN. 9.5 g/dL (12.0-16.0); MEAN CORPUSCULAR HEMOGLOBIN 28.9 pg (28.0-32.0); MEAN PLATELET VOLUME 7.8 fl (7.4-10.4); PLATELET 158 x1000/uL (130-400); RED BLOOD CELL COUNT 3.27 mill/uL (4.2-5.4); RED CELL DISTRIBUTION WIDTH 15.1 % (11.6-14.6)
[2020-05-25] MEDS: LOSARTAN POTASSIUM 50 MG TABLET PO SCH (09:00)
[2020-05-25] MEDS: AMLODIPINE 10MG TABLET PO SCH (09:00)
[2020-05-25] MEDS: ATENOLOL 50 MG TABLET PO SCH ×2 (09:00→18:21)
[2020-05-25] MEDS: CLOPIDOGREL 75MG TABLET PO SCH (09:40)
[2020-05-25] MEDS: FERROUS SULFATE 300MG/5ML UDC PO SCH ×2 (09:40→18:18)
[2020-05-25] MEDS: POTASSIUM CHLORIDE 20MEQ TABLET SR PO SCH (09:40)
[2020-05-25] MEDS: LINAGLIPTIN 5MG TABLET PO SCH (09:41)
[2020-05-25] MEDS: VENLAFAXINE HCL 37.5MG SR CAPSULE 24HR PO SCH (09:51)
[2020-05-25] MEDS: FLUTICASONE PROPIONATE 50MCG/SPRAY BOTTLE BOTHNSTRLS SCH ×2 (09:52→20:44)
[2020-05-25] MEDS: SODIUM CHLORIDE 0.9% 1,000 ML IV SCH (11:37)
[2020-05-25 12:00] VITALS: BP 143/68
[2020-05-25 13:43] LABS: PLATELET ESTIMATE NORMAL
[2020-05-25 16:00] VITALS: BP 121/61
[2020-05-25] MEDS ORDERED: BUDESONIDE 0.5MG/2ML NEB HHN NR (17:15)
[2020-05-25] MEDS: PREDNISONE 20MG TABLET PO SCH (18:18)
[2020-05-25] MEDS: CELECOXIB 200MG CAPSULE PO SCH (18:18)
[2020-05-25 20:00] VITALS: BP 150/58
[2020-05-25] MEDS ORDERED: LEVOFLOXACIN 500MG PREMIX 100 ML IV NR (20:00)
[2020-05-25] MEDS: IPRATROPIUM/ALBUTEROL 0.5-3(2.5)MG/3ML NEB HHN SCH (20:42)
[2020-05-25] MEDS: ATORVASTATIN CALCIUM 20MG TABLET PO SCH (20:44)
[2020-05-25] MEDS: FAMOTIDINE 20MG TABLET PO SCH (20:46)
[2020-05-25] MEDS: TERAZOSIN HCL 5MG CAPSULE PO SCH (20:46)
[2020-05-25] MEDS: OLANZAPINE 10MG TABLET PO SCH (20:47)
[2020-05-26] VITALS: BP 119/58
[2020-05-26] MEDS: IPRATROPIUM/ALBUTEROL 0.5-3(2.5)MG/3ML NEB HHN SCH ×5 (03:29→21:38)
[2020-05-26 04:00] VITALS: BP 110/54
[2020-05-26] MEDS: BLOOD SUGAR DIAGNOSTIC STRIP TEST SCH ×4 (06:29→21:00)
[2020-05-26] MEDS: INSULIN LISPRO 100 UNITS/ML SUBCUT SCH ×4 (06:40→21:00)
[2020-05-26] MEDS: LEVOTHYROXINE SODIUM 25MCG TABLET PO SCH (06:42)
[2020-05-26] MEDS: SODIUM CHLORIDE 0.9% 1,000 ML IV SCH (06:56)
[2020-05-26 07:10] LABS: HEMATOCRIT. 28.2 % (36.0-48.0); HEMOGLOBIN. 9.6 g/dL (12.0-16.0); MEAN CORPUSCULAR HEMOGLOBIN 29.1 pg (28.0-32.0); MEAN CORPUSCULAR VOLUME 85.1 fL (81.0-99.0); MEAN PLATELET VOLUME 7.9 fl (7.4-10.4); PLATELET 169 x1000/uL (130-400); RED BLOOD CELL COUNT 3.31 mill/uL (4.2-5.4); RED CELL DISTRIBUTION WIDTH 15.1 % (11.6-14.6)
[2020-05-26 07:51] LABS: PHOSPHORUS 3.3 mg/dL (2.5-4.9)
[2020-05-26 08:00] VITALS: BP 111/66
[2020-05-26] MEDS: FERROUS SULFATE 300MG/5ML UDC PO SCH ×2 (09:09→17:40)
[2020-05-26] MEDS: PREDNISONE 20MG TABLET PO SCH (09:10)
[2020-05-26] MEDS: ATENOLOL 50 MG TABLET PO SCH ×2 (09:10→17:42)
[2020-05-26] MEDS: LINAGLIPTIN 5MG TABLET PO SCH (09:10)
[2020-05-26] MEDS: FLUTICASONE PROPIONATE 50MCG/SPRAY BOTTLE BOTHNSTRLS SCH (09:10)
[2020-05-26] MEDS: CELECOXIB 200MG CAPSULE PO SCH (09:11)
[2020-05-26] MEDS: POTASSIUM CHLORIDE 20MEQ TABLET SR PO SCH (09:11)
[2020-05-26] MEDS: VENLAFAXINE HCL 37.5MG SR CAPSULE 24HR PO SCH (09:11)
[2020-05-26] MEDS: AMLODIPINE 10MG TABLET PO SCH (09:11)
[2020-05-26] MEDS: CLOPIDOGREL 75MG TABLET PO SCH (09:11)
[2020-05-26 12:00] VITALS: BP 135/66
[2020-05-26] MEDS: LEVOFLOXACIN 250MG PREMIX 50 ML IV SCH (13:07)
[2020-05-26 16:00] VITALS: BP 125/65
[2020-05-26 20:00] VITALS: BP 129/60
[2020-05-26] MEDS: TERAZOSIN HCL 5MG CAPSULE PO SCH (20:42)
[2020-05-26] MEDS: ATORVASTATIN CALCIUM 20MG TABLET PO SCH (20:43)
[2020-05-26] MEDS: OLANZAPINE 10MG TABLET PO SCH (20:43)
[2020-05-26] MEDS: FAMOTIDINE 20MG TABLET PO SCH (20:43)
[2020-05-26 23:21] LABS: PLATELET ESTIMATE NORMAL
[2020-05-27] VITALS (7 sets, daily range): BP systolic 111–138; BP diastolic 45–80
[2020-05-27] MEDS: IPRATROPIUM/ALBUTEROL 0.5-3(2.5)MG/3ML NEB HHN SCH ×5 (00:50→20:40)
[2020-05-27] MEDS: SODIUM CHLORIDE 0.9% 1,000 ML IV SCH (03:30)
[2020-05-27 07:02] LABS: HEMOGLOBIN. 8.4 g/dL (12.0-16.0); MEAN CORPUSCULAR HEMOGLOBIN 28.2 pg (28.0-32.0); MEAN CORPUSCULAR VOLUME 84.3 fL (81.0-99.0); MEAN PLATELET VOLUME 7.8 fl (7.4-10.4); PLATELET 215 x1000/uL (130-400); RED BLOOD CELL COUNT 2.97 mill/uL (4.2-5.4); RED CELL DISTRIBUTION WIDTH 15.1 % (11.6-14.6)
[2020-05-27] MEDS: LEVOTHYROXINE SODIUM 25MCG TABLET PO SCH (07:27)
[2020-05-27] MEDS: BLOOD SUGAR DIAGNOSTIC STRIP TEST SCH ×4 (07:46→20:40)
[2020-05-27] MEDS: INSULIN LISPRO 100 UNITS/ML SUBCUT SCH ×4 (08:14→21:26)
[2020-05-27] MEDS: FERROUS SULFATE 300MG/5ML UDC PO SCH ×2 (08:50→17:12)
[2020-05-27] MEDS: ATENOLOL 50 MG TABLET PO SCH ×2 (10:14→17:12)
[2020-05-27] MEDS: LINAGLIPTIN 5MG TABLET PO SCH (10:15)
[2020-05-27] MEDS: AMLODIPINE 10MG TABLET PO SCH (10:18)
[2020-05-27] MEDS: CELECOXIB 200MG CAPSULE PO SCH (10:19)
[2020-05-27] MEDS: CLOPIDOGREL 75MG TABLET PO SCH (10:19)
[2020-05-27] MEDS: POTASSIUM CHLORIDE 20MEQ TABLET SR PO SCH (10:30)
[2020-05-27] MEDS: VENLAFAXINE HCL 37.5MG SR CAPSULE 24HR PO SCH (10:31)
[2020-05-27] MEDS: PREDNISONE 20MG TABLET PO SCH (10:32)
[2020-05-27] MEDS: LEVOFLOXACIN 250MG PREMIX 50 ML IV SCH (12:44)
[2020-05-27 13:31] LABS: PLATELET ESTIMATE NORMAL
[2020-05-27] MEDS: OLANZAPINE 10MG TABLET PO SCH (21:19)
[2020-05-27] MEDS: ATORVASTATIN CALCIUM 20MG TABLET PO SCH (21:19)
[2020-05-27] MEDS: TERAZOSIN HCL 5MG CAPSULE PO SCH (21:19)
[2020-05-27] MEDS: FAMOTIDINE 20MG TABLET PO SCH (21:43)
[2020-05-28] MEDS: IPRATROPIUM/ALBUTEROL 0.5-3(2.5)MG/3ML NEB HHN SCH ×5 (00:41→16:00)
[2020-05-28 04:00] VITALS: BP 141/60
[2020-05-28] MEDS: BLOOD SUGAR DIAGNOSTIC STRIP TEST SCH ×2 (05:40→12:40)
[2020-05-28] MEDS: LEVOTHYROXINE SODIUM 25MCG TABLET PO SCH (05:40)
[2020-05-28] MEDS: INSULIN LISPRO 100 UNITS/ML SUBCUT SCH ×2 (05:47→12:44)
[2020-05-28 08:00] VITALS: BP 120/57
[2020-05-28] MEDS: CLOPIDOGREL 75MG TABLET PO SCH (09:00)
[2020-05-28] MEDS: FERROUS SULFATE 300MG/5ML UDC PO SCH (09:00)
[2020-05-28] MEDS: VENLAFAXINE HCL 37.5MG SR CAPSULE 24HR PO SCH (09:00)
[2020-05-28] MEDS ORDERED: CELECOXIB 100MG CAPSULE PO SCH (09:00)
[2020-05-28] MEDS: POTASSIUM CHLORIDE 20MEQ TABLET SR PO SCH (09:00)
[2020-05-28] MEDS: PREDNISONE 20MG TABLET PO SCH (09:00)
[2020-05-28] MEDS: AMLODIPINE 10MG TABLET PO SCH (09:01)
[2020-05-28] MEDS: LINAGLIPTIN 5MG TABLET PO SCH (10:15)
[2020-05-28] MEDS: ATENOLOL 50 MG TABLET PO SCH (10:16)
[2020-05-28 12:00] VITALS: BP 120/59
[2020-05-28] MEDS: LEVOFLOXACIN 250MG PREMIX 50 ML IV SCH (13:04)
[2020-05-28 15:58] VITALS: BP 120/59
[2020-05-29 10:10] LABS: 25-HYDROXY VITAMIN D3 29 ng/mL (.)
[2020-05-30 09:10] LABS: ALDOLASE 5.8 U/L (3.3-10.3)
[2020-05-31 14:07] LABS: ANA IFA Positive (.)
== END 2020-05-28 16:40 | DRG 871 ==
LOC: ER 10:52 → 8WST 15:15 → ENRESERV 15:48
PROVIDERS: ADMIT Specialist; ATTEND Specialist
PROC: 3E023BZ Introduction of Anesthetic Agent into Muscle, Percutaneous Approach (ICD-10-PCS; principal; 2020-05-26)
PROC: 3E0U3BZ Introduction of Anesthetic Agent into Joints, Percutaneous Approach (ICD-10-PCS; 2020-05-27)
PROC: 0YJ Anatomical Regions, Lower Extremities, Inspection (ICD-10-PCS; 2020-05-27)
DX: A41.9 Sepsis, unspecified organism (principal); N17.0 Acute kidney failure with tubular necrosis; E87.1 Hypo-osmolality and hyponatremia; I13.0 Hypertensive heart and chronic kidney disease with heart failure and stage 1 through stage 4 chronic kidney disease, or unspecified chronic kidney disease; F31.30 Bipolar disorder, current episode depressed, mild or moderate severity, unspecified; F23 Brief psychotic disorder; N39.0 Urinary tract infection, site not specified; E78.5 Hyperlipidemia, unspecified; E86.0 Dehydration; E87.6 Hypokalemia; I25.10 Atherosclerotic heart disease of native coronary artery without angina pectoris; J44.9 Chronic obstructive pulmonary disease, unspecified; K22.70 Barrett's esophagus without dysplasia; K44.9 Diaphragmatic hernia without obstruction or gangrene; E11.65 Type 2 diabetes mellitus with hyperglycemia; E11.22 Type 2 diabetes mellitus with diabetic chronic kidney disease; E03.9 Hypothyroidism, unspecified; D72.829 Elevated white blood cell count, unspecified; D64.9 Anemia, unspecified; E86.1 Hypovolemia; K21.9 Gastro-esophageal reflux disease without esophagitis; F41.9 Anxiety disorder, unspecified; M17.11 Unilateral primary osteoarthritis, right knee; M25.461 Effusion, right knee; F60.9 Personality disorder, unspecified; M47.816 Spondylosis without myelopathy or radiculopathy, lumbar region; M76.891 Other specified enthesopathies of right lower limb, excluding foot; Z96.641 Presence of right artificial hip joint; N18.30 Chronic kidney disease, stage 3 unspecified; Z82.49 Family history of ischemic heart disease and other diseases of the circulatory system; Z83.3 Family history of diabetes mellitus; Z90.710 Acquired absence of both cervix and uterus; Z91.81 History of falling; Z95.3 Presence of xenogenic heart valve; Z88.2 Allergy status to sulfonamides; Z79.899 Other long term (current) drug therapy; I50.9 Heart failure, unspecified; I48.0 Paroxysmal atrial fibrillation
CPT/HCPCS: 36415; 71045; 72100; 73502; 73560; 80048; 80061; 82085; 82270; 82306; 82533; 82550; 82962; 83036; 83735; 83880; 83930; 84100; 84443; 84550; 85025; 86235; 86256; 86431; 93005; 93970; 97162; 97166; 97535; 99285; C1893; J1815; J1956; J7030; J7512; J7626

== ENCOUNTER 2020-05-28 16:50 | Inpatient (IN) | payer MEDICARE, BC ==
[~2020-05-28] VITALS: Ht 157.5 cm; Wt 85.7 kg
[2020-05-28 16:50] VITALS: BP 143/65
[2020-05-28] MEDS ORDERED: ONDANSETRON HCL 4MG/2ML INJ IV PRN (17:30)
[2020-05-28] MEDS ORDERED: FUROSEMIDE 20MG TABLET PO PRN (17:30)
[2020-05-28] MEDS ORDERED: GUAIFENESIN 200MG/10ML SUGAR FREE UDC PO PRN (17:30)
[2020-05-28] MEDS ORDERED: MAGNESIUM/ALUMINUM HYDROXIDE/SIMETHICONE 30ML UDC PO PRN (17:30)
[2020-05-28] MEDS ORDERED: DIPHENHYDRAMINE 50MG/ML VIAL IV PRN (17:55)
[2020-05-28] MEDS ORDERED: DEXTROSE 50% WATER 50ML SYRINGE IV PRN (18:00)
[2020-05-28 20:00] VITALS: BP 114/74
[2020-05-28] MEDS ORDERED: LEVOFLOXACIN 250MG PREMIX 50 ML IV SCH (20:00)
[2020-05-28] MEDS: ATENOLOL 50 MG TABLET PO SCH (21:00)
[2020-05-28] MEDS: IPRATROPIUM/ALBUTEROL 0.5-3(2.5)MG/3ML NEB HHN SCH (21:00)
[2020-05-28] MEDS: INSULIN LISPRO 100 UNITS/ML SUBCUT SCH (21:00)
[2020-05-28] MEDS: BLOOD SUGAR DIAGNOSTIC STRIP TEST SCH (21:05)
[2020-05-28] MEDS: FAMOTIDINE 20MG TABLET PO SCH (22:21)
[2020-05-28] MEDS: TERAZOSIN HCL 5MG CAPSULE PO SCH (22:22)
[2020-05-28] MEDS: ATORVASTATIN CALCIUM 20MG TABLET PO SCH (22:22)
[2020-05-28] MEDS: SODIUM CHLORIDE 0.9% 1,000 ML IV SCH (22:23)
[2020-05-29] MEDS: IPRATROPIUM/ALBUTEROL 0.5-3(2.5)MG/3ML NEB HHN SCH ×5 (04:00→21:42)
[2020-05-29] MEDS: BLOOD SUGAR DIAGNOSTIC STRIP TEST SCH ×4 (06:21→21:12)
[2020-05-29] MEDS: LEVOTHYROXINE SODIUM 25MCG TABLET PO SCH (06:30)
[2020-05-29] MEDS: INSULIN LISPRO 100 UNITS/ML SUBCUT SCH ×4 (06:31→22:08)
[2020-05-29 07:28] LABS: HEMATOCRIT. 26.7 % (36.0-48.0); HEMOGLOBIN. 8.9 g/dL (12.0-16.0); MEAN CORPUSCULAR HEMOGLOBIN 28.2 pg (28.0-32.0); MEAN CORPUSCULAR VOLUME 84.4 fL (81.0-99.0); MEAN PLATELET VOLUME 7.3 fl (7.4-10.4); PLATELET 320 x1000/uL (130-400); RED BLOOD CELL COUNT 3.17 mill/uL (4.2-5.4); RED CELL DISTRIBUTION WIDTH 15.4 % (11.6-14.6)
[2020-05-29 08:00] VITALS: BP 127/60
[2020-05-29] MEDS: POTASSIUM CHLORIDE 20MEQ TABLET SR PO SCH (08:15)
[2020-05-29] MEDS: DOCUSATE SODIUM 100MG CAPSULE PO PRN (08:15)
[2020-05-29] MEDS: OLANZAPINE 10MG TABLET PO SCH (08:15)
[2020-05-29] MEDS: CLOPIDOGREL 75MG TABLET PO SCH (08:15)
[2020-05-29] MEDS: VENLAFAXINE HCL 37.5MG SR CAPSULE 24HR PO SCH (08:15)
[2020-05-29] MEDS: FERROUS SULFATE 300MG/5ML UDC PO SCH ×2 (08:15→16:43)
[2020-05-29] MEDS: ATENOLOL 50 MG TABLET PO SCH ×2 (08:16→22:06)
[2020-05-29] MEDS: AMLODIPINE 10MG TABLET PO SCH (08:16)
[2020-05-29] MEDS: LINAGLIPTIN 5MG TABLET PO SCH (08:17)
[2020-05-29] MEDS ORDERED: CELECOXIB 100MG CAPSULE PO SCH (09:00)
[2020-05-29] MEDS ORDERED: PREDNISONE 20MG TABLET PO SCH (09:00)
[2020-05-29] MEDS: LEVOFLOXACIN 250MG TABLET PO SCH (11:26)
[2020-05-29] MEDS: FLUTICASONE PROPIONATE 50MCG/SPRAY BOTTLE BOTHNSTRLS SCH (11:27)
[2020-05-29] MEDS: SODIUM CHLORIDE 45ML SPRAY NS SCH ×2 (13:05→16:43)
[2020-05-29] MEDS: SODIUM CHLORIDE 0.9% 1,000 ML IV SCH (13:41)
[2020-05-29 16:48] LABS: VITAMIN B12 SERUM 691 pg/mL (211-911)
[2020-05-29 19:48] LABS: PLATELET ESTIMATE NORMAL
[2020-05-29 20:00] VITALS: BP 127/65
[2020-05-29] MEDS: TERAZOSIN HCL 5MG CAPSULE PO SCH (21:00)
[2020-05-29] MEDS: FAMOTIDINE 20MG TABLET PO SCH (22:05)
[2020-05-29] MEDS: ATORVASTATIN CALCIUM 20MG TABLET PO SCH (22:05)
[2020-05-30] MEDS: IPRATROPIUM/ALBUTEROL 0.5-3(2.5)MG/3ML NEB HHN SCH ×6 (00:55→20:53)
[2020-05-30] MEDS: SODIUM CHLORIDE 0.9% 1,000 ML IV SCH (06:45)
[2020-05-30] MEDS: BLOOD SUGAR DIAGNOSTIC STRIP TEST SCH ×4 (06:46→21:00)
[2020-05-30] MEDS: LEVOTHYROXINE SODIUM 25MCG TABLET PO SCH (06:46)
[2020-05-30] MEDS: INSULIN LISPRO 100 UNITS/ML SUBCUT SCH ×4 (06:53→21:00)
[2020-05-30 07:11] VITALS: BP 148/73
[2020-05-30 07:42] LABS: TOTAL IRON BINDING CAPACITY 200 ug/dL (250-450)
[2020-05-30] MEDS: OLANZAPINE 10MG TABLET PO SCH (08:57)
[2020-05-30] MEDS: LINAGLIPTIN 5MG TABLET PO SCH (08:57)
[2020-05-30] MEDS: DOCUSATE SODIUM 100MG CAPSULE PO PRN (08:57)
[2020-05-30] MEDS: CLOPIDOGREL 75MG TABLET PO SCH (08:57)
[2020-05-30] MEDS: VENLAFAXINE HCL 37.5MG SR CAPSULE 24HR PO SCH (08:57)
[2020-05-30] MEDS: POTASSIUM CHLORIDE 20MEQ TABLET SR PO SCH (08:57)
[2020-05-30] MEDS: AMLODIPINE 10MG TABLET PO SCH (08:58)
[2020-05-30] MEDS: SODIUM CHLORIDE 45ML SPRAY NS SCH ×3 (08:58→17:00)
[2020-05-30] MEDS: ATENOLOL 50 MG TABLET PO SCH ×2 (08:58→22:12)
[2020-05-30] MEDS: FLUTICASONE PROPIONATE 50MCG/SPRAY BOTTLE BOTHNSTRLS SCH (08:59)
[2020-05-30] MEDS: FERROUS SULFATE 300MG/5ML UDC PO SCH ×2 (08:59→16:58)
[2020-05-30] MEDS ORDERED: NA PHOS,M-B/NA PHOS,DI-BA ENEMA 118ML PR SCH (10:00)
[2020-05-30] MEDS: LEVOFLOXACIN 250MG TABLET PO SCH (11:21)
[2020-05-30 20:00] VITALS: BP 120/60
[2020-05-30] MEDS: TERAZOSIN HCL 5MG CAPSULE PO SCH (21:00)
[2020-05-30] MEDS: ATORVASTATIN CALCIUM 20MG TABLET PO SCH (22:12)
[2020-05-30] MEDS: FAMOTIDINE 20MG TABLET PO SCH (22:12)
[2020-05-31] MEDS: IPRATROPIUM/ALBUTEROL 0.5-3(2.5)MG/3ML NEB HHN SCH ×4 (00:40→22:33)
[2020-05-31] MEDS: BLOOD SUGAR DIAGNOSTIC STRIP TEST SCH ×4 (06:17→20:58)
[2020-05-31] MEDS: LEVOTHYROXINE SODIUM 25MCG TABLET PO SCH (06:18)
[2020-05-31 06:38] LABS: HEMATOCRIT. 25.9 % (36.0-48.0); HEMOGLOBIN. 8.9 g/dL (12.0-16.0); MEAN CORPUSCULAR HEMOGLOBIN 29.4 pg (28.0-32.0); MEAN PLATELET VOLUME 7.1 fl (7.4-10.4); PLATELET 318 x1000/uL (130-400); RED BLOOD CELL COUNT 3.01 mill/uL (4.2-5.4); RED CELL DISTRIBUTION WIDTH 16.1 % (11.6-14.6)
[2020-05-31] MEDS: INSULIN LISPRO 100 UNITS/ML SUBCUT SCH ×4 (06:45→20:58)
[2020-05-31 08:03] VITALS: BP 128/88
[2020-05-31] MEDS: VENLAFAXINE HCL 37.5MG SR CAPSULE 24HR PO SCH (08:28)
[2020-05-31] MEDS: OLANZAPINE 10MG TABLET PO SCH (08:28)
[2020-05-31] MEDS: ATENOLOL 50 MG TABLET PO SCH ×2 (08:28→20:32)
[2020-05-31] MEDS: DOCUSATE SODIUM 100MG CAPSULE PO PRN ×2 (08:29→18:26)
[2020-05-31] MEDS: AMLODIPINE 10MG TABLET PO SCH (08:29)
[2020-05-31] MEDS: CLOPIDOGREL 75MG TABLET PO SCH (08:29)
[2020-05-31] MEDS: LINAGLIPTIN 5MG TABLET PO SCH (08:29)
[2020-05-31] MEDS: POTASSIUM CHLORIDE 20MEQ TABLET SR PO SCH (08:29)
[2020-05-31] MEDS: FERROUS SULFATE 300MG/5ML UDC PO SCH ×2 (08:40→18:26)
[2020-05-31] MEDS: FLUTICASONE PROPIONATE 50MCG/SPRAY BOTTLE BOTHNSTRLS SCH (08:40)
[2020-05-31] MEDS: SODIUM CHLORIDE 45ML SPRAY NS SCH ×3 (08:41→18:29)
[2020-05-31] MEDS ORDERED: ACETAMINOPHEN 325MG TABLET PO PRN (08:45)
[2020-05-31] MEDS ORDERED: TRAMADOL 50MG TABLET PO PRN (09:45)
[2020-05-31] MEDS ORDERED: IBUPROFEN 200MG TABLET PO PRN (10:00)
[2020-05-31] MEDS ORDERED: IBUPROFEN 400MG TABLET PO PRN (11:00)
[2020-05-31] MEDS: LEVOFLOXACIN 250MG TABLET PO SCH (12:10)
[2020-05-31 13:43] LABS: PLATELET ESTIMATE NORMAL
[2020-05-31 20:00] VITALS: BP 125/64
[2020-05-31] MEDS: FAMOTIDINE 20MG TABLET PO SCH (20:30)
[2020-05-31] MEDS: ATORVASTATIN CALCIUM 20MG TABLET PO SCH (20:31)
[2020-05-31] MEDS: TERAZOSIN HCL 5MG CAPSULE PO SCH (20:31)
[2020-05-31] MEDS ORDERED: TEMAZEPAM 15MG CAPSULE PO PRN (21:00)
[2020-05-31 22:42] LABS: CLARITY URINE CLEAR (CLEAR); COLOR URINE YELLOW (YELLOW); KETONES URINE NEGATIVE (NEGATIVE); LEUKOCYTE ESTERASE URINE NEGATIVE (NEGATIVE); NITRITE URINE NEGATIVE (NEGATIVE); OCCULT BLOOD URINE NEGATIVE (NEGATIVE); PROTEIN URINE NEGATIVE (NEGATIVE); SPECIFIC GRAVITY URINE 1.008 (1.005-1.030); UROBILINOGEN URINE 0.2 E.U./dL (0.2-1.0)
[2020-06-01] MEDS: IPRATROPIUM/ALBUTEROL 0.5-3(2.5)MG/3ML NEB HHN SCH ×6 (02:17→19:53)
[2020-06-01] MEDS: BLOOD SUGAR DIAGNOSTIC STRIP TEST SCH ×4 (06:06→20:59)
[2020-06-01] MEDS: INSULIN LISPRO 100 UNITS/ML SUBCUT SCH ×4 (06:10→20:56)
[2020-06-01] MEDS: LEVOTHYROXINE SODIUM 25MCG TABLET PO SCH (06:10)
[2020-06-01 06:30] LABS: HEMATOCRIT. 25.3 % (36.0-48.0); HEMOGLOBIN. 8.5 g/dL (12.0-16.0); MEAN CORPUSCULAR HEMOGLOBIN 28.9 pg (28.0-32.0); MEAN CORPUSCULAR VOLUME 86.4 fL (81.0-99.0); MEAN PLATELET VOLUME 6.6 fl (7.4-10.4); PLATELET 297 x1000/uL (130-400); RED BLOOD CELL COUNT 2.93 mill/uL (4.2-5.4); RED CELL DISTRIBUTION WIDTH 15.5 % (11.6-14.6)
[2020-06-01 07:17] VITALS: BP 123/57
[2020-06-01] MEDS ORDERED: AMLODIPINE 10MG TABLET PO SCH (09:00)
[2020-06-01] MEDS: OLANZAPINE 10MG TABLET PO SCH (09:19)
[2020-06-01] MEDS: CLOPIDOGREL 75MG TABLET PO SCH (09:19)
[2020-06-01] MEDS: LINAGLIPTIN 5MG TABLET PO SCH (09:19)
[2020-06-01] MEDS: ATENOLOL 50 MG TABLET PO SCH (09:20)
[2020-06-01] MEDS: FLUTICASONE PROPIONATE 50MCG/SPRAY BOTTLE BOTHNSTRLS SCH (09:20)
[2020-06-01] MEDS: FERROUS SULFATE 300MG/5ML UDC PO SCH ×2 (09:20→16:53)
[2020-06-01] MEDS: PREDNISONE 5MG TABLET PO SCH ×2 (09:20→16:52)
[2020-06-01] MEDS: VENLAFAXINE HCL 37.5MG SR CAPSULE 24HR PO SCH (09:20)
[2020-06-01] MEDS: POTASSIUM CHLORIDE 20MEQ TABLET SR PO SCH (09:20)
[2020-06-01] MEDS: SODIUM CHLORIDE 45ML SPRAY NS SCH ×3 (09:20→16:54)
[2020-06-01] MEDS: LEVOFLOXACIN 250MG TABLET PO SCH (11:09)
[2020-06-01 11:21] LABS: PLATELET ESTIMATE NORMAL
[2020-06-01] MEDS: DOCUSATE SODIUM 100MG CAPSULE PO PRN (16:52)
[2020-06-01] MEDS: SODIUM CHLORIDE 0.9% 1,000 ML IV SCH (18:04)
[2020-06-01 20:10] VITALS: BP 122/68
[2020-06-01] MEDS: ATORVASTATIN CALCIUM 20MG TABLET PO SCH (20:55)
[2020-06-01] MEDS: ATENOLOL 25MG TABLET PO SCH (20:55)
[2020-06-01] MEDS: FAMOTIDINE 20MG TABLET PO SCH (20:55)
[2020-06-01] MEDS: TERAZOSIN HCL 5MG CAPSULE PO SCH (20:59)
[2020-06-02] MEDS: IPRATROPIUM/ALBUTEROL 0.5-3(2.5)MG/3ML NEB HHN SCH ×6 (00:09→21:42)
[2020-06-02] MEDS: SODIUM CHLORIDE 0.9% 1,000 ML IV SCH (05:56)
[2020-06-02] MEDS: BLOOD SUGAR DIAGNOSTIC STRIP TEST SCH ×4 (05:59→20:48)
[2020-06-02] MEDS: INSULIN LISPRO 100 UNITS/ML SUBCUT SCH ×4 (06:00→21:39)
[2020-06-02] MEDS: LEVOTHYROXINE SODIUM 25MCG TABLET PO SCH (06:00)
[2020-06-02 07:59] VITALS: BP 142/66
[2020-06-02] MEDS: OLANZAPINE 10MG TABLET PO SCH (08:25)
[2020-06-02] MEDS: FERROUS SULFATE 300MG/5ML UDC PO SCH ×2 (08:25→17:18)
[2020-06-02] MEDS: DOCUSATE SODIUM 100MG CAPSULE PO PRN (08:25)
[2020-06-02] MEDS: POTASSIUM CHLORIDE 20MEQ TABLET SR PO SCH (08:26)
[2020-06-02] MEDS: TRAMADOL 50MG TABLET PO PRN (08:26)
[2020-06-02] MEDS: CLOPIDOGREL 75MG TABLET PO SCH (08:27)
[2020-06-02] MEDS: VENLAFAXINE HCL 37.5MG SR CAPSULE 24HR PO SCH (08:27)
[2020-06-02] MEDS: LINAGLIPTIN 5MG TABLET PO SCH (08:27)
[2020-06-02] MEDS: AMLODIPINE 5MG TABLET PO SCH (08:27)
[2020-06-02] MEDS: SODIUM CHLORIDE 45ML SPRAY NS SCH ×3 (08:28→17:19)
[2020-06-02] MEDS: PREDNISONE 5MG TABLET PO SCH ×2 (08:28→17:18)
[2020-06-02] MEDS: ATENOLOL 25MG TABLET PO SCH ×2 (08:28→21:28)
[2020-06-02] MEDS: LEVOFLOXACIN 250MG TABLET PO SCH (11:31)
[2020-06-02] MEDS: BISACODYL 5MG TABLET PO PRN (17:47)
[2020-06-02 20:00] VITALS: BP 118/67
[2020-06-02] MEDS: ATORVASTATIN CALCIUM 20MG TABLET PO SCH (21:27)
[2020-06-02] MEDS: FAMOTIDINE 20MG TABLET PO SCH (21:27)
[2020-06-02] MEDS: TERAZOSIN HCL 5MG CAPSULE PO SCH (21:27)
[2020-06-03] MEDS: SODIUM CHLORIDE 0.9% 1,000 ML IV SCH (00:14)
[2020-06-03] MEDS: IPRATROPIUM/ALBUTEROL 0.5-3(2.5)MG/3ML NEB HHN SCH ×6 (00:45→20:47)
[2020-06-03] MEDS: BLOOD SUGAR DIAGNOSTIC STRIP TEST SCH ×4 (06:09→21:31)
[2020-06-03] MEDS: LEVOTHYROXINE SODIUM 25MCG TABLET PO SCH (06:11)
[2020-06-03] MEDS: INSULIN LISPRO 100 UNITS/ML SUBCUT SCH ×4 (06:23→22:00)
[2020-06-03 08:00] VITALS: BP 142/61
[2020-06-03] MEDS: OLANZAPINE 10MG TABLET PO SCH (08:33)
[2020-06-03] MEDS: FERROUS SULFATE 300MG/5ML UDC PO SCH ×2 (08:33→17:32)
[2020-06-03] MEDS: DOCUSATE SODIUM 100MG CAPSULE PO PRN ×2 (08:33→17:32)
[2020-06-03] MEDS: PREDNISONE 5MG TABLET PO SCH ×2 (08:34→17:35)
[2020-06-03] MEDS: VENLAFAXINE HCL 37.5MG SR CAPSULE 24HR PO SCH (08:34)
[2020-06-03] MEDS: AMLODIPINE 5MG TABLET PO SCH (08:34)
[2020-06-03] MEDS: POTASSIUM CHLORIDE 20MEQ TABLET SR PO SCH (08:34)
[2020-06-03] MEDS: SODIUM CHLORIDE 45ML SPRAY NS SCH ×3 (08:35→17:32)
[2020-06-03] MEDS: TRAMADOL 50MG TABLET PO PRN (08:35)
[2020-06-03] MEDS: ATENOLOL 25MG TABLET PO SCH ×2 (08:35→21:31)
[2020-06-03] MEDS: LINAGLIPTIN 5MG TABLET PO SCH (08:35)
[2020-06-03] MEDS ORDERED: CLONIDINE 0.1MG TABLET PO PRN (11:00)
[2020-06-03] MEDS: BISACODYL 5MG TABLET PO PRN (17:32)
[2020-06-03 20:00] VITALS: BP 131/71
[2020-06-03] MEDS: FAMOTIDINE 20MG TABLET PO SCH (21:30)
[2020-06-03] MEDS: ATORVASTATIN CALCIUM 20MG TABLET PO SCH (21:30)
[2020-06-03] MEDS: TERAZOSIN HCL 5MG CAPSULE PO SCH (21:31)
[2020-06-04] MEDS: IPRATROPIUM/ALBUTEROL 0.5-3(2.5)MG/3ML NEB HHN SCH ×6 (00:24→20:31)
[2020-06-04] MEDS: BLOOD SUGAR DIAGNOSTIC STRIP TEST SCH ×4 (06:41→20:46)
[2020-06-04] MEDS: LEVOTHYROXINE SODIUM 25MCG TABLET PO SCH (07:20)
[2020-06-04] MEDS: INSULIN LISPRO 100 UNITS/ML SUBCUT SCH ×4 (07:22→20:52)
[2020-06-04 08:00] VITALS: BP 141/60
[2020-06-04 08:02] LABS: HEMATOCRIT. 26.1 % (36.0-48.0); HEMOGLOBIN. 8.7 g/dL (12.0-16.0); MEAN CORPUSCULAR HEMOGLOBIN 29.1 pg (28.0-32.0); MEAN CORPUSCULAR VOLUME 86.9 fL (81.0-99.0); MEAN PLATELET VOLUME 6.9 fl (7.4-10.4); PLATELET 336 x1000/uL (130-400); RED CELL DISTRIBUTION WIDTH 15.8 % (11.6-14.6)
[2020-06-04] MEDS: VENLAFAXINE HCL 37.5MG SR CAPSULE 24HR PO SCH (09:43)
[2020-06-04] MEDS: SODIUM CHLORIDE 45ML SPRAY NS SCH ×3 (09:43→16:06)
[2020-06-04] MEDS: POTASSIUM CHLORIDE 20MEQ TABLET SR PO SCH (09:45)
[2020-06-04] MEDS: AMLODIPINE 5MG TABLET PO SCH (09:47)
[2020-06-04] MEDS: PREDNISONE 5MG TABLET PO SCH ×2 (09:47→16:05)
[2020-06-04] MEDS: LINAGLIPTIN 5MG TABLET PO SCH (09:47)
[2020-06-04] MEDS: CLOPIDOGREL 75MG TABLET PO SCH (09:48)
[2020-06-04] MEDS: ATENOLOL 25MG TABLET PO SCH ×2 (09:49→20:46)
[2020-06-04] MEDS: FERROUS SULFATE 300MG/5ML UDC PO SCH ×2 (10:13→16:04)
[2020-06-04] MEDS: OLANZAPINE 10MG TABLET PO SCH (10:16)
[2020-06-04] MEDS: FUROSEMIDE 20MG TABLET PO PRN (11:15)
[2020-06-04] MEDS: SODIUM CHLORIDE 0.9% 1,000 ML IV SCH (12:45)
[2020-06-04 14:07] LABS: PLATELET ESTIMATE NORMAL
[2020-06-04] MEDS: BISACODYL 5MG TABLET PO PRN (16:05)
[2020-06-04] MEDS: DOCUSATE SODIUM 100MG CAPSULE PO PRN (16:05)
[2020-06-04] MEDS: SODIUM CHLORIDE 0.9% 1,000 ML IV ONE ×2 (17:00→21:52)
[2020-06-04 20:30] VITALS: BP 171/69
[2020-06-04] MEDS: FAMOTIDINE 20MG TABLET PO SCH (20:45)
[2020-06-04] MEDS: ATORVASTATIN CALCIUM 20MG TABLET PO SCH (20:45)
[2020-06-04] MEDS: TERAZOSIN HCL 5MG CAPSULE PO SCH (20:45)
[2020-06-04 21:40] VITALS: BP 168/63
[2020-06-04 22:40] VITALS: BP 138/65
[2020-06-05] MEDS: IPRATROPIUM/ALBUTEROL 0.5-3(2.5)MG/3ML NEB HHN SCH ×6 (00:03→21:56)
[2020-06-05] MEDS: SODIUM CHLORIDE 0.9% 1,000 ML IV SCH ×2 (02:05→15:25)
[2020-06-05] MEDS: LEVOTHYROXINE SODIUM 25MCG TABLET PO SCH (06:21)
[2020-06-05] MEDS: BLOOD SUGAR DIAGNOSTIC STRIP TEST SCH ×4 (06:21→21:00)
[2020-06-05] MEDS: INSULIN LISPRO 100 UNITS/ML SUBCUT SCH ×4 (06:34→22:37)
[2020-06-05 07:08] LABS: HEMATOCRIT. 23.7 % (36.0-48.0); HEMOGLOBIN. 8.1 g/dL (12.0-16.0); MEAN CORPUSCULAR HEMOGLOBIN 29.6 pg (28.0-32.0); MEAN CORPUSCULAR VOLUME 87.1 fL (81.0-99.0); MEAN PLATELET VOLUME 6.7 fl (7.4-10.4); PLATELET 260 x1000/uL (130-400); RED BLOOD CELL COUNT 2.72 mill/uL (4.2-5.4); RED CELL DISTRIBUTION WIDTH 15.4 % (11.6-14.6)
[2020-06-05] MEDS: LINAGLIPTIN 5MG TABLET PO SCH (07:59)
[2020-06-05] MEDS: ATENOLOL 25MG TABLET PO SCH ×2 (07:59→22:28)
[2020-06-05] MEDS: PREDNISONE 5MG TABLET PO SCH ×2 (08:00→16:08)
[2020-06-05] MEDS: VENLAFAXINE HCL 37.5MG SR CAPSULE 24HR PO SCH (08:00)
[2020-06-05] MEDS: DOCUSATE SODIUM 100MG CAPSULE PO PRN ×2 (08:00→16:08)
[2020-06-05] MEDS: AMLODIPINE 5MG TABLET PO SCH (08:00)
[2020-06-05] MEDS: OLANZAPINE 10MG TABLET PO SCH ×2 (08:02→22:26)
[2020-06-05] MEDS: SODIUM CHLORIDE 45ML SPRAY NS SCH ×3 (08:02→17:00)
[2020-06-05 08:05] VITALS: BP 147/62
[2020-06-05] MEDS: FERROUS SULFATE 300MG/5ML UDC PO SCH ×2 (11:39→16:08)
[2020-06-05] MEDS ORDERED: SODIUM POLYSTYRENE SULFONATE 15 G/60 ML BOT PO SCH (12:00)
[2020-06-05 12:48] LABS: PLATELET ESTIMATE NORMAL
[2020-06-05 20:00] VITALS: BP 157/67
[2020-06-05] MEDS: FAMOTIDINE 20MG TABLET PO SCH (22:26)
[2020-06-05] MEDS: TERAZOSIN HCL 5MG CAPSULE PO SCH (22:27)
[2020-06-05] MEDS: ATORVASTATIN CALCIUM 20MG TABLET PO SCH (22:28)
[2020-06-06] MEDS: IPRATROPIUM/ALBUTEROL 0.5-3(2.5)MG/3ML NEB HHN SCH ×5 (00:48→20:56)
[2020-06-06] MEDS: SODIUM CHLORIDE 0.9% 1,000 ML IV SCH ×2 (04:45→18:05)
[2020-06-06] MEDS: BLOOD SUGAR DIAGNOSTIC STRIP TEST SCH ×4 (06:00→20:39)
[2020-06-06] MEDS: LEVOTHYROXINE SODIUM 25MCG TABLET PO SCH (06:01)
[2020-06-06] MEDS: INSULIN LISPRO 100 UNITS/ML SUBCUT SCH ×4 (06:02→20:47)
[2020-06-06 06:15] LABS: HEMATOCRIT. 25.4 % (36.0-48.0); HEMOGLOBIN. 8.5 g/dL (12.0-16.0); MEAN CORPUSCULAR VOLUME 86.4 fL (81.0-99.0); MEAN PLATELET VOLUME 6.7 fl (7.4-10.4); PLATELET 268 x1000/uL (130-400); RED BLOOD CELL COUNT 2.94 mill/uL (4.2-5.4); RED CELL DISTRIBUTION WIDTH 15.3 % (11.6-14.6)
[2020-06-06 08:04] VITALS: BP 141/82
[2020-06-06] MEDS: LINAGLIPTIN 5MG TABLET PO SCH (08:42)
[2020-06-06] MEDS: ATENOLOL 25MG TABLET PO SCH ×2 (08:42→20:39)
[2020-06-06] MEDS: VENLAFAXINE HCL 37.5MG SR CAPSULE 24HR PO SCH ×2 (08:42→11:12)
[2020-06-06] MEDS: CLOPIDOGREL 75MG TABLET PO SCH (08:42)
[2020-06-06] MEDS: PREDNISONE 5MG TABLET PO SCH ×2 (08:42→16:31)
[2020-06-06] MEDS: AMLODIPINE 5MG TABLET PO SCH (08:43)
[2020-06-06] MEDS: SODIUM CHLORIDE 45ML SPRAY NS SCH ×3 (08:43→16:32)
[2020-06-06] MEDS: FERROUS SULFATE 300MG/5ML UDC PO SCH ×2 (08:59→16:31)
[2020-06-06 13:36] LABS: PLATELET ESTIMATE NORMAL
[2020-06-06 20:00] VITALS: BP 148/70
[2020-06-06] MEDS: OLANZAPINE 10MG TABLET PO SCH (20:32)
[2020-06-06] MEDS: ATORVASTATIN CALCIUM 20MG TABLET PO SCH (20:32)
[2020-06-06] MEDS: FAMOTIDINE 20MG TABLET PO SCH (20:32)
[2020-06-06] MEDS: TERAZOSIN HCL 5MG CAPSULE PO SCH (20:35)
[2020-06-07] MEDS: IPRATROPIUM/ALBUTEROL 0.5-3(2.5)MG/3ML NEB HHN SCH ×6 (04:32→20:35)
[2020-06-07] MEDS: BLOOD SUGAR DIAGNOSTIC STRIP TEST SCH ×4 (06:03→20:50)
[2020-06-07] MEDS: LEVOTHYROXINE SODIUM 25MCG TABLET PO SCH (06:03)
[2020-06-07] MEDS: INSULIN LISPRO 100 UNITS/ML SUBCUT SCH ×4 (06:14→20:55)
[2020-06-07] MEDS: SODIUM CHLORIDE 0.9% 1,000 ML IV SCH ×2 (07:07→19:12)
[2020-06-07 08:00] VITALS: BP 143/83
[2020-06-07] MEDS: AMLODIPINE 5MG TABLET PO SCH (08:48)
[2020-06-07] MEDS: VENLAFAXINE HCL 37.5MG SR CAPSULE 24HR PO SCH (08:48)
[2020-06-07] MEDS: PREDNISONE 5MG TABLET PO SCH ×2 (08:48→16:42)
[2020-06-07] MEDS: BISACODYL 5MG TABLET PO PRN ×2 (08:49→18:16)
[2020-06-07] MEDS: SODIUM CHLORIDE 45ML SPRAY NS SCH ×3 (08:49→16:41)
[2020-06-07] MEDS: LINAGLIPTIN 5MG TABLET PO SCH (08:49)
[2020-06-07] MEDS: ATENOLOL 25MG TABLET PO SCH ×2 (08:49→20:49)
[2020-06-07] MEDS: FERROUS SULFATE 300MG/5ML UDC PO SCH ×2 (08:50→16:56)
[2020-06-07 20:00] VITALS: BP 154/75
[2020-06-07] MEDS: TERAZOSIN HCL 5MG CAPSULE PO SCH (20:49)
[2020-06-07] MEDS: ATORVASTATIN CALCIUM 20MG TABLET PO SCH (20:49)
[2020-06-07] MEDS: OLANZAPINE 10MG TABLET PO SCH (20:49)
[2020-06-07] MEDS: FAMOTIDINE 20MG TABLET PO SCH (20:49)
[2020-06-08] MEDS: IPRATROPIUM/ALBUTEROL 0.5-3(2.5)MG/3ML NEB HHN SCH ×4 (01:16→12:30)
[2020-06-08] MEDS: LEVOTHYROXINE SODIUM 25MCG TABLET PO SCH (06:04)
[2020-06-08] MEDS: BLOOD SUGAR DIAGNOSTIC STRIP TEST SCH ×2 (06:11→11:50)
[2020-06-08] MEDS: INSULIN LISPRO 100 UNITS/ML SUBCUT SCH ×2 (06:19→12:25)
[2020-06-08 07:40] VITALS: BP 153/83
[2020-06-08] MEDS: LINAGLIPTIN 5MG TABLET PO SCH (09:57)
[2020-06-08] MEDS: FUROSEMIDE 20MG TABLET PO PRN (09:57)
[2020-06-08] MEDS: VENLAFAXINE HCL 37.5MG SR CAPSULE 24HR PO SCH (09:57)
[2020-06-08] MEDS: CLOPIDOGREL 75MG TABLET PO SCH (09:57)
[2020-06-08] MEDS: BISACODYL 5MG TABLET PO PRN (09:57)
[2020-06-08] MEDS: AMLODIPINE 5MG TABLET PO SCH (09:59)
[2020-06-08] MEDS: ATENOLOL 25MG TABLET PO SCH (09:59)
[2020-06-08] MEDS: DOCUSATE SODIUM 100MG CAPSULE PO PRN (10:00)
[2020-06-08] MEDS: PREDNISONE 5MG TABLET PO SCH (10:00)
[2020-06-08] MEDS: SODIUM CHLORIDE 0.9% 1,000 ML IV SCH (10:05)
[2020-06-08] MEDS: SODIUM CHLORIDE 45ML SPRAY NS SCH (10:07)
[2020-06-08] MEDS: FERROUS SULFATE 300MG/5ML UDC PO SCH (10:10)
[2020-06-08 12:59] VITALS: BP 153/83
== END 2020-06-08 14:20 | disposition home health service (06) | DRG 554 ==
PROVIDERS: ADMIT Psychiatry & Neurology Neurology; ATTEND Specialist
DX: M17.11 Unilateral primary osteoarthritis, right knee (principal); F31.30 Bipolar disorder, current episode depressed, mild or moderate severity, unspecified; F05 Delirium due to known physiological condition; N17.9 Acute kidney failure, unspecified; E03.9 Hypothyroidism, unspecified; I13.10 Hypertensive heart and chronic kidney disease without heart failure, with stage 1 through stage 4 chronic kidney disease, or unspecified chronic kidney disease; E11.22 Type 2 diabetes mellitus with diabetic chronic kidney disease; N18.30 Chronic kidney disease, stage 3 unspecified; D64.9 Anemia, unspecified; M77.9 Enthesopathy, unspecified; K21.9 Gastro-esophageal reflux disease without esophagitis; K44.9 Diaphragmatic hernia without obstruction or gangrene; Z90.49 Acquired absence of other specified parts of digestive tract; Z95.3 Presence of xenogenic heart valve; Z90.710 Acquired absence of both cervix and uterus; M47.816 Spondylosis without myelopathy or radiculopathy, lumbar region; K59.00 Constipation, unspecified
CPT/HCPCS: 36415; 71045; 80048; 81003; 82436; 82570; 82607; 82962; 83036; 83540; 83550; 83935; 84300; 84443; 84484; 85025; 92523; 92610; 93005; 93306; 94640; 97110; 97112; 97116; 97162; 97166; 97530; 97535; C1893; J1815; J1956; J7030; J7512